=== PATIENT | male | born 1990 | race Caucasian/White ===

== ENCOUNTER 2018-02-08 16:22 | Emergency (ER) | payer SELFPAY ==
[~2018-02-08] VITALS: Ht 165.1 cm; Wt 73.9 kg
[~2018-02-08 16:22] MED LIST: CRS350T PO; CYCL10TA9 PO; DICY20TA57 PO; HYDR-3720 PO; HYDR1TAB PO; HYOS0.1216 PO; IBP800T PO; METO10TA61 PO; NAPR-243 PO; PANT20TA2 PO; RT-ALBUINH IH; TRAM50TA2 PO
--- NOTE | 2018-02-08 16:35 | ED Lower Extremity ---
General Stated Complaint: L FOOT PAIN Source: patient Exam Limitations: no limitations History of Present Illness Date Seen by Provider: Feb 08, 2018 Time Seen by Provider: 16:32 Initial Comments To ER with pain to the dorsal aspect of the left forefoot that began spontaneously about 3 days ago without known preceding injury. He notices a bit of discoloration in this area that appears to be bruising. No history of this. Onset: just prior to arrival Severity: moderate Pain/Injury Location: left foot Method of Injury: unknown Modifying Factors: Worse With Movement Allergies and Home Medications Allergies Coded Allergies: NKANo Known Allergies (Unverified Allergy, Mild, 10/12/08) Home Medications No Active Prescriptions or Reported Meds Patient Home Medication List Home Medication List Reviewed: Yes Review of Systems Constitutional: see HPI EENTM: see HPI Respiratory: no symptoms reported Cardiovascular: no symptoms reported Genitourinary: no symptoms reported Musculoskeletal: see HPI Skin: see HPI Psychiatric/Neurological: No Symptoms Reported Past Otkprsi-Qrtaev-Mgauux Hx Patient Social History Recent Foreign Travel: No Contact w/Someone Who Travel: No Recent Hopitalizations: No Immunizations Up To Date Tetanus Booster (TDap): More than 5yrs Past Medical History Gallbladder Reproductive Disorders: No Gall Bladder Disease Family Medical History No Pertinent Family Hx, Hypertension Physical Exam Vital Signs Vital Signs - First Documented 02/08/18 16:30 Temp 96.2 Pulse 90 Resp 18 B/P (MAP) 109/80 (90) Pulse Ox 98 O2 Delivery Room Air Capillary Refill : Height, Weight, BMI Height: 5'5" Weight: 195lbs. oz. 88.199087qt; BMI Method:Stated General Appearance: WD/WN, no apparent distress HEENT: PERRL/EOMI, normal ENT inspection Neck: non-tender, full range of motion Respiratory: no respiratory distress, no accessory muscle use Hips: bilateral hip non-tender, bilateral hip normal inspection, bilateral hip normal range of motion Legs: bilateral leg non-tender, bilateral leg normal inspection, bilateral leg normal range of motion Knees: bilateral knee non-tender, bilateral knee normal inspection, bilateral knee normal range of motion Ankles: bilateral ankle non-tender, bilateral ankle normal inspection, bilateral ankle normal range of motion Feet: left foot other (left foot is without swelling or deformity. There is some very faint purplish discoloration to the dorsal aspect of the forefoot near the second third and fourth MTP joints. He is able to wiggle his toes, normal sensation distal to this and brisk capillary refill to each of the toes.) Neurologic/Psychiatric: alert, normal mood/affect, oriented x 3 Skin: normal color, warm/dry Progress/Results/Core Measures Results/Orders My Orders Orders - RODRÍGUEZ MERA APRN Foot, Left, 3 Views (02/08/18 16:31) Vital Signs/I&O 02/08/18 16:30 Temp 96.2 Pulse 90 Resp 18 B/P (MAP) 109/80 (90) Pulse Ox 98 O2 Delivery Room Air Departure Impression Primary Impression: Left foot pain Disposition: HOME, SELF-CARE Condition: Stable Departure-Patient Inst. Decision time for Depature: 16:34 Referrals: [facility] [place] [place] (PCP/Family) Primary Care Physician Patient Instructions: General (DC) Add. Discharge Instructions: 1. Use ibuprofen or naproxen for pain control. Reduce your cigarette smoking 2. Follow-up with your regular doctor this week for follow-up. Call tomorrow morning at 8 AM for an appointment. Crutches as needed. Scripts No Active Prescriptions or Reported Meds Work/School Note: Work Release Form Date Seen in the Emergency Department: Feb 08, 2018 Return to Work: Feb 11, 2018 RODRÍGUEZ MERA APRN Feb 08, 2018 16:35
--- NOTE | 2018-02-08 16:47 | Diagnostic Imaging Report ---
Indication: Pain on dorsum of left foot 3 views of the left foot show no fracture, dislocation or other acute abnormalities. Impression: Negative left foot Dictated by: Dictated on workstation # [id number]
[2018-02-08 17:09] VITALS: BP 109/80
--- OUTSIDE RECORDS SUMMARY | 2018-02-08 17:36 | XMS REPORT ---
Author Author PRADEEPHERBERT COUGHLIN [facility] Address Unknown Care Team Providers Care Rubber And Pounder Name Role Phone HERBERT GARRIDO Unavailable PROBLEMS Type Condition ICD9-CM Code [id number] Code Onset Dates Condition Status SNOMED Code Problem Calculus of gallbladder without mention of cholecystitis or obstruction 574.20 Active 101082515 Problem Lumbago 724.2 Active 949718725 Problem Abdominal pain, epigastric 789.06 Active 67259932 Problem Pain in soft tissues of limb 729.5 Active 24062156 Problem Nausea with vomiting 787.01 Active 26732679 ALLERGIES No Known Allergies ENCOUNTERS Encounter Location Date Diagnosis [facility] [address] [id number] Nov, Dental examination Z01.20 and Dental caries K02.9 [facility] [address] [address] Nov, Dental caries extending into dentin K02.62 and Encounter for screening for dental disorder Z13.84 [facility] [address] [id number] September, Dental examination Z01.20 and Dental caries K02.9 [facility] [address] [address] September, Oral abscess K12.2 [facility] [address] [address] September, Dental abscess K04.7 [facility] [address] [address] Jan, Epigastric pain 789.06 ; Dyspnea 786.09 ; Hepatic cyst 573.8 and Hepatic steatosis 571.8 [facility] [address] [place] [address] 28 Sep, 2014 [facility] [place] [facility] [address] [id number] [place] [address] 28 Sep, 2014 [facility] [place] [facility] [address] [id number] [place] [address] 14 Apr, 2014 [facility] [place] [facility] [address] [id number] [place] [address] 13 Apr, 2014 [facility] [place] [facility] [address] [id number] [place] [address] 23 Sep, 2013 [facility] [place] [facility] [address] [id number] [place] [address] 23 Sep, 2013 [facility] [place] [facility] [address] [id number] [place] [address] 17 Sep, 2013 [facility] [place] [facility] [address] [id number] [place] [address] 17 Sep, 2013 [facility] [place] [facility] [address] [id number] [place] [address] 17 Sep, 2013 [facility] [place] [facility] [address] [id number] [place] [address] 17 Sep, 2013 [facility] [place] [facility] [address] [id number] [place] [address] 16 Sep, 2013 [facility] [place] [facility] [address] [id number] [place] [address] 25[address] 16 Sep, 2013 [facility] [place] [facility] [address] [id number] [place] [address] 11 Sep, 2013 [facility] [place] [facility] [address] [id number] [place] [address] 2546 11 Sep, 2013 [facility] [place] [facility] [address] [id number] [place] [address] 05 Sep, 2013 [facility] [place] [facility] [address] [id number] [place] [address] 05 Jan, 2014 [facility] [place] [facility] [address] [id number] [place] [address] 13 Apr, 2013 [facility] [place] [facility] [address] [id number] [place] [address] Apr, [facility] [place] [facility] [address] [id number] [place] [address] Apr, [facility] [place] [facility] [address] [id number] [place] [address] Apr, [facility] [place] [facility] [address] [id number] [place] [address] Apr, [facility] [place] [facility] [address] [id number] [place] [address] Apr, [facility] [place] [facility] [address] [id number] [place] [address] Apr, [facility] [place] [facility] [address] [id number] [place] [address] Apr, [facility] [place] [facility] [address] [id number] [place] [address] Apr, [facility] [place] [facility] [address] [id number] [place] [address] 14 Mar, 2013 [facility] [place] [facility] [address] [id number] [place] [address] 14 Mar, 2013 [facility] [place] [facility] [address] [id number] [place] [address] Mar, [facility] [place] [facility] [address] [id number] [place] [address] 05 Mar, 2013 [facility] [place] [facility] [address] [id number] [place] [address] Jan, [facility] [place] [facility] [address] [id number] [place] [address] 07 Oct, 2012 [facility] [place] [facility] [address] [id number] [place] [address] September, [facility] [address] [facility] [id number] [place] [address] Jul, IMMUNIZATIONS No Known Immunizations SOCIAL HISTORY Never Assessed REASON FOR VISIT YON PLAN OF CARE Activity Details Follow Up prn Reason:MAURICIO with HYG VITAL SIGNS Blood pressure systolic 138 mmHg 2017-10-01 Blood pressure diastolic 78 mmHg 2017-10-01 MEDICATIONS Medication Instructions Dosage Frequency Start Date End Date Duration Status ProAir HFA 108 (90 Base) MCG/ACT Inhalation every 4 hrs prn 2 puffs as needed Jan, Not-Taking Amoxicillin 500 MG Orally every 8 hrs 1 capsule 8h September, September, 10 day(s) Active RESULTS No Results PROCEDURES Procedure Date Ordered Result Body Site LTD ORAL EVALUATION - PROBLEM FOCUS October 01, 2017 EXTRAC ERUPTED TOOTH/EXPOSED ROOT October 01, 2017 INSTRUCTIONS MEDICATIONS ADMINISTERED No Known Medications MEDICAL (GENERAL) HISTORY Type Description Date Medical History cyst on liver Surgical History cholecystectomy Hospitalization History surgery
--- OUTSIDE RECORDS SUMMARY | 2018-02-08 17:36 | XMS REPORT ---
Author Author KRISTIN BOOKER Organization [facility] Address [address] [place] [address] Care Team Providers Care Barrel Handler Name Role Phone KRISTIN BOOKER Unavailable PROBLEMS Type Condition ICD9-CM Code EPX45-DV Code Onset Dates Condition Status SNOMED Code Problem Calculus of gallbladder without mention of cholecystitis or obstruction 574.20 Active 248931302 Problem Lumbago 724.2 Active 200936207 Problem Abdominal pain, epigastric 789.06 Active 71620008 Problem Pain in soft tissues of limb 729.5 Active 29945134 Problem Nausea with vomiting 787.01 Active 12335654 ALLERGIES No Known Allergies ENCOUNTERS Encounter Location Date Diagnosis [facility] [address] [address] Jan, [facility] [address] [address] Dec, Viral gastroenteritis A08.4 [facility] [address] [id number] Nov, 2017 Dental examination Z01.20 and Dental caries K02.9 [facility] [address] [address] 13 Nov, 2017 Dental caries extending into dentin K02.62 and Encounter for screening for dental disorder Z13.84 [facility] [address] [id number] 17 Sep, 2017 Dental examination Z01.20 and Dental caries K02.9 [facility] [address] [address] 15 Sep, 2017 Oral abscess K12.2 [facility] [address] [address] 15 Sep, 2017 Dental abscess K04.7 [facility] [place] [facility] [address] [address] 29 Jan, 2014 Epigastric pain 789.06 ; Dyspnea 786.09 ; Hepatic cyst 573.8 and Hepatic steatosis 571.8 [facility] [place] [facility] [address] [id number], [place] [address] 28 Jan, 2014 [facility] [place] [facility] [id number] [place] [address] 28 Jan, 2014 [facility] [place] [facility] [id number] [place] [address] 14 Aug, 2014 [facility] [place] [facility] [id number] [place] [address] 13 Aug, 2014 [facility] [place] [facility] [id number] [place] [address] 6[address] 23 Jan, 2013 [facility] [place] [facility] [id number] [place] [address] 23 Jan, 2013 [facility] [place] [facility] [id number] [place] [address] 17 Jan, 2013 [facility] [place] [facility] [id number] [place] [address] 17 Jan, 2013 [facility] [place] [facility] [address], [place] [address] 17 Jan, 2013 [facility] [place] [facility] [address] [place] [address] 17 Jan, 2013 [facility] [place] [facility] [address], [place] [address] 16 Jan, 2013 [facility] [place] [facility] [id number] [place] [address] 16 Jan, 2013 [facility] [place] [facility] [address] [address] 11 Jan, 2013 [facility] [place] [facility] [address] [id number] [address] 11 Jan, 2013 [facility] [address] [id number] [place] [address] 24[address] 05 Jan, 2013 [facility] [place] [facility] [address] [id number] [place] [address] 115[address] 05 Jan, 2013 [facility] [address] [id number] [place] [address]- 0[address] 13 Apr, 2013 [facility] [place] [facility] [address] [id number] [place] [address]- 5[address] 13 Apr, 2013 [facility] [address] [id number] [place] [address] 8[address] 10 Apr, 2013 [facility] [place] [facility] [address] [id number] [place] [address]- [address] Apr, [facility] [address] [id number] [place] [address] 3499 10 Apr, 2013 [facility] [place] [facility] [address] [id number] [place] [address] 87[address] Apr, [facility] [place] [facility] [address] [id number] [place] [address] 3[address] Apr, [facility] [address] [id number] [place] [address]- 4392 Apr, [facility] [place] [facility] [address] [id number] [place] [address]- 32[address] Apr, [facility] [place] [facility] [address] [id number] [place] [address] 4658 14 Mar, 2013 [facility] [place] [facility] [address] [id number] [place] [address] 3477 14 Mar, 2013 [facility] [place] [facility] [address] [id number] [place] [address]- 86[address] Mar, [facility] [place] [facility] [address] [id number] [place] [address] 7[address] 05 Mar, 2013 [facility] [address] [facility] [id number], [place] [address] Jan, [facility] [address] [facility] [id number], [place] [address] Oct, [facility] [address] [facility] [id number], [place] [address] September, [facility] [address] [facility] [id number], [place] [address] Jul, IMMUNIZATIONS No Known Immunizations SOCIAL HISTORY Never Assessed REASON FOR VISIT N/v x 2 days. Denies fever. Pt states he has been drinking water and sprite. Last urinated 30 minutes ago. [facility] PLAN OF CARE Activity Details Follow Up prn Reason: VITAL SIGNS Height 66 in 2018-01-04 Weight 166.2 lbs 2018-01-04 Temperature 97.4 degrees Fahrenheit 2018-01-04 Heart Rate 80 bpm 2018-01-04 Respiratory Rate 2018-01-04 BMI 26.82 kg/m2 2018-01-04 Blood pressure systolic 120 mmHg 2018-01-04 Blood pressure diastolic 80 mmHg 2018-01-04 MEDICATIONS Medication Instructions Dosage Frequency Start Date End Date Duration Status Zofran ODT 4 MG Orally every 4 hrs 1 tablet on the tongue and allow to dissolve as needed 4h Dec, 03 days Active RESULTS No Results PROCEDURES No Known procedures INSTRUCTIONS MEDICATIONS ADMINISTERED No Known Medications MEDICAL (GENERAL) HISTORY Type Description Date Medical History cyst on liver Surgical History cholecystectomy Hospitalization History surgery
--- OUTSIDE RECORDS SUMMARY | 2018-02-08 17:36 | XMS REPORT ---
Author Author DEBORA MACKEY [facility] Address [address] [place] [address] Care Team Providers Care Events Intern Name Role Phone DEBORA MACKEY Unavailable PROBLEMS Type Condition ICD9-CM Code HZA65-QQ Code Onset Dates Condition Status SNOMED Code Problem Calculus of gallbladder without mention of cholecystitis or obstruction 574.20 Active 523609680 Problem Lumbago 724.2 Active 741374461 Problem Abdominal pain, epigastric 789.06 Active 10411879 Problem Pain in soft tissues of limb 729.5 Active 10236724 Problem Nausea with vomiting 787.01 Active 95012387 ALLERGIES No Known Allergies ENCOUNTERS Encounter Location Date Diagnosis [facility] [address] [address] Dec, Viral gastroenteritis A08.4 [facility] [address] [id number] Nov, Dental examination Z01.20 and Dental caries K02.9 [facility] [address] [address] Nov, Dental caries extending into dentin K02.62 and Encounter for screening for dental disorder Z13.84 [facility] [address] [id number] September, Dental examination Z01.20 and Dental caries K02.9 [facility] [address] [address] September, Oral abscess K12.2 [facility] [address] [address] September, Dental abscess K04.7 [facility] [address] [place] [address] 29 Jan, 2015 Epigastric pain 789.06 ; Dyspnea 786.09 ; Hepatic cyst 573.8 and Hepatic steatosis 571.8 [facility] [place] [facility] [address], [place] [address] 28 Jan, 2014 [facility] [place] [facility] [id number] [place] [address] 28 Jan, 2014 [facility] [place] [facility] [id number] [place] [address]- [address] 14 Aug, 2014 [facility] [place] [facility] [id number] [place] [address]- [address] 13 Aug, 2014 [facility] [place] [facility] [id number] [place] [address] 23 Jan, 2013 [facility] [place] [facility] [id number] [place] [address]- [address] 23 Jan, 2013 [facility] [place] [facility] [id number] [place] [address]- 3698 17 Jan, 2013 [facility] [place] [facility] [id number] [place] [address] 2543 17 Jan, 2013 [facility] [place] [facility] [address] [id number], [place] [address]- [address] 17 Jan, 2013 [facility] [place] [facility] [address], [place] [address] 2542 17 Jan, 2013 [facility] [place] [facility] [address], [place] [address]- [address] 16 Jan, 2013 [facility] [place] [facility] [address] [place] [address] 254 16 Jan, 2013 [facility] [place] [facility] [address], [place] [address] 11 Jan, 2013 [facility] [place] [facility] [address], [place] [address]- [address] 11 Jan, 2013 [facility] [place] [facility] [address] [facility] [id number] [place] [address]- [address] 05 Jan, 2013 [facility] [address] [id number] [place] [address]- 5784 05 Jan, 2014 [facility] [place] [facility] [address] [id number] [place] [address]- 7[address] Apr, [facility] [address] [id number] [place] [address]- 00[address] Apr, [facility] [place] [facility] [address] [id number] [place] [address]- 03[address] Apr, [facility] [address] [id number] [place] [address]- 8768 Apr, [facility] [address] [id number] [place] [address]- 83[address] Apr, [facility] [address] [id number] [place] [address]- 7[address] Apr, [facility] [address] [id number] [place] [address]- 39[address] Apr, [facility] [address] [id number] [place] [address]- 4651 Apr, [facility] [address] [id number] [place] [address]- 97[address] Apr, [facility] [place] [facility] [address] [id number] [place] [address]- [address] Mar, [facility] [place] [facility] [address] [id number] [place] [address]- 8[address] Mar, [facility] [place] [facility] [address] [id number] [place] [address]- 132[address] Mar, [facility] [place] [facility] [address] [id number] [place] [address]- [address] Mar, [facility] [place] [facility] [address] [id number] [place] [address]- 69[address] Jan, [facility] [address] [facility] [id number] [place] [address]- [address] Oct, [facility] [address] [facility] [id number], [place] [address] September, [facility] [address] [facility] [id number], [place] [address] Jul, IMMUNIZATIONS No Known Immunizations SOCIAL HISTORY Never Assessed REASON FOR VISIT tooth pain. PLAN OF CARE Activity Details Follow Up today Reason:YON/ possible TE VITAL SIGNS Blood pressure systolic 122 mmHg 2017-11-27 Blood pressure diastolic 80 mmHg 2017-11-27 MEDICATIONS Medication Instructions Dosage Frequency Start Date End Date Duration Status ProAir HFA 108 (90 Base) MCG/ACT Inhalation every 4 hrs prn 2 puffs as needed Jan, Not-Taking RESULTS No Results PROCEDURES Procedure Date Ordered Result Body Site INTRAORL-PERIAPICAL 1 FILM 47672 November 27, 2017 PANORAMIC FILM SEE ALSO CODE [id number] September 29, 2017 Billing Notes on claim November 27, 2017 SCREENING OF A PATIENT November 27, 2017 INSTRUCTIONS MEDICATIONS ADMINISTERED No Known Medications MEDICAL (GENERAL) HISTORY Type Description Date Medical History cyst on liver Surgical History cholecystectomy Hospitalization History surgery
--- OUTSIDE RECORDS SUMMARY | 2018-02-08 17:36 | XMS REPORT ---
Author Author MAI CORTEZ Organization [facility] Address [address] [place] [address] Care Team Providers Care Passenger Tire Builder Name Role Phone MAI CORTEZ Unavailable PROBLEMS Type Condition ICD9-CM Code RYS59-JW Code Onset Dates Condition Status SNOMED Code Problem Calculus of gallbladder without mention of cholecystitis or obstruction 574.20 Active 723410751 Problem Lumbago 724.2 Active 190012492 Problem Abdominal pain, epigastric 789.06 Active 55123017 Problem Pain in soft tissues of limb 729.5 Active 92415053 Problem Nausea with vomiting 787.01 Active 01309638 ALLERGIES No Known Allergies ENCOUNTERS Encounter Location Date Diagnosis [facility] [address] [id number] Nov, Dental examination Z01.20 and Dental caries K02.9 [facility] [address] [address] Nov, Dental caries extending into dentin K02.62 and Encounter for screening for dental disorder Z13.84 [facility] [address] [id number] September, Dental examination Z01.20 and Dental caries K02.9 [facility] [address] [address] September, Oral abscess K12.2 [facility] [address] [address] September, Dental abscess K04.7 [facility] [address] [address] Jan, Epigastric pain 789.06 ; Dyspnea 786.09 ; Hepatic cyst 573.8 and Hepatic steatosis 571.8 [place] [id number] [id number] [place] [address] 28 Sep, 2014 [facility] [place] [facility] [address] [id number] [place] [address] 2546 28 Sep, 2014 [facility] [place] [facility] [address] [id number] [place] [address] 14 Aug, 2014 [facility] [place] [facility] [address] [id number] [place] [address] 13 Apr, 2014 [facility] [place] [facility] [address] [id number] [place] [address] 2542 23 Sep, 2013 [facility] [place] [facility] [address] [id number] [place] [address] 23 Sep, 2013 [facility] [place] [facility] [address] [id number] [place] [address] 114[address] 17 Sep, 2013 [facility] [place] [facility] [address] [id number] [place] [address] 17 Sep, 2013 [facility] [place] [facility] [address] [id number] [place] [address] 17 Sep, 2013 [facility] [place] [facility] [address] [id number] [place] [address] 17 Sep, 2013 [facility] [place] [facility] [address] [id number] [place] [address] 2544 16 Sep, 2013 [facility] [place] [facility] [address] [id number] [place] [address] 16 Sep, 2013 [facility] [place] [facility] [address] [id number] [place] [address] 2546 11 Sep, 2013 [facility] [place] [facility] [address] [id number] [place] [address] 2546 11 Sep, 2013 [facility] [place] [facility] [address] [id number] [place] [address] 05 Sep, 2013 [facility] [place] [facility] [address] [id number] [place] [address] 05 Jan, 2014 [facility] [address] [id number] [place] [address] 13 Apr, 2013 [facility] [place] [facility] [address] [id number] [place] [address] Apr, [facility] [place] [facility] [address] [facility] [id number] [place] [address] Apr, [facility] [place] [facility] [address] [id number] [place] [address] Apr, [facility] [place] [facility] [address] [id number] [place] [address] Apr, [facility] [place] [facility] [address] [id number] [place] [address] Apr, [facility] [place] [facility] [address] [id number] [place] [address] 12[address] Apr, [facility] [place] [facility] [address] [id number] [place] [address] Apr, [facility] [place] [facility] [address] [id number] [place] [address] Apr, [facility] [place] [facility] [address] [id number] [place] [address] 14 Mar, 2013 [facility] [place] [facility] [address] [id number], [place] [address] 14 Mar, 2013 [facility] [place] [facility] [address] [id number], [place] [address] 05 Mar, 2013 [facility] [place] [facility] [address] [id number] [place] [address] 05 Mar, 2013 [facility] [place] [facility] [address] [id number] [place] [address] Jan, [facility] [place] [facility] [address] [id number], [place] [address] Oct, [facility] [place] [facility] [address] [facility] [id number] [place] [address] September, [facility] [address] [facility] [id number], [place] [address] Jul, IMMUNIZATIONS No Known Immunizations SOCIAL HISTORY Never Assessed REASON FOR VISIT Dental Assessment PLAN OF CARE Activity Details Follow Up MARJORIE Reason:YON/TX VITAL SIGNS MEDICATIONS Medication Instructions Dosage Frequency Start Date End Date Duration Status ProAir HFA 108 (90 Base) MCG/ACT Inhalation every 4 hrs prn 2 puffs as needed Jan, Not-Taking RESULTS No Results PROCEDURES Procedure Date Ordered Result Body Site INTRAORL-PERIAPICAL 1 FILM 45465 September 29, 2017 PANORAMIC FILM SEE ALSO CODE 20443 September 29, 2017 Billing Notes on claim September 29, 2017 SCREENING OF A PATIENT September 29, 2017 INSTRUCTIONS MEDICATIONS ADMINISTERED No Known Medications MEDICAL (GENERAL) HISTORY Type Description Date Medical History cyst on liver Surgical History cholecystectomy Hospitalization History surgery
--- OUTSIDE RECORDS SUMMARY | 2018-02-08 17:36 | XMS REPORT ---
Author Author PRADEEPHERBERT COUGHLIN [facility] Address Unknown Care Team Providers Care Magento Web Developer Name Role Phone HERBERT GARRIDO Unavailable PROBLEMS Type Condition ICD9-CM Code LBD97-AK Code Onset Dates Condition Status SNOMED Code Problem Calculus of gallbladder without mention of cholecystitis or obstruction 574.20 Active 251276940 Problem Lumbago 724.2 Active 594173599 Problem Abdominal pain, epigastric 789.06 Active 45522854 Problem Pain in soft tissues of limb 729.5 Active 23474833 Problem Nausea with vomiting 787.01 Active 32281575 ALLERGIES No Known Allergies ENCOUNTERS Encounter Location Date Diagnosis [facility] [address] [address] Dec, Viral gastroenteritis A08.4 [facility] [address] [id number] Nov, Dental examination Z01.20 and Dental caries K02.9 [facility] [address] [address] Nov, Dental caries extending into dentin K02.62 and Encounter for screening for dental disorder Z13.84 [facility] [address] [id number] September, Dental examination Z01.20 and Dental caries K02.9 [facility] [address] [address] September, Oral abscess K12.2 [facility] [address] [address] September, Dental abscess K04.7 [facility] [address] [address] 29 Sep, 2015 Epigastric pain 789.06 ; Dyspnea 786.09 ; Hepatic cyst 573.8 and Hepatic steatosis 571.8 [facility] [address] [place] [address] 28 Jan, 2014 [facility] [place] [facility] [address] [place] [address] 28 Jan, 2014 [facility] [place] [facility] [id number] [place] [address], [place] [address] 14 Aug, 2014 [facility] [place] [facility] [address] [facility] [id number] [place] [address], [place] [address] 13 Aug, 2014 [facility] [place] [facility] [address] [place] [id number] [place] [address], [place] [address] 23 Jan, 2013 [facility] [place] [facility] [address] [place] [id number] [place] [address], [place] [address] 23 Jan, 2013 [facility] [place] [facility] [address] [place] [id number] [place] [address], [place] [address] 2547 17 Jan, 2013 [facility] [place] [facility] [id number] [address] 2540 17 Jan, 2013 [facility] [place] [facility] [address] [address] 254 17 Jan, 2013 [facility] [place] [facility] [address] [place] [id number] [address] 17 Jan, 2013 [facility] [place] [facility] [address] [address] 25[address] 16 Jan, 2013 [facility] [place] [facility] [address] [place] [address] [id number] [address] 2543 16 Jan, 2013 [facility] [place] [facility] [address] [address] 2546 11 Jan, 2013 [facility] [place] [facility] [address] [place] [id number] [address] 11 Jan, 2013 [facility] [place] [facility] [address] [address] 05 Jan, 2014 [facility] [address] [id number] [place] [address] 05 Jan, 2014 [facility] [place] [facility] [address] [id number] [place] [address] Apr, [facility] [place] [facility] [address] [id number] [place] [address] Apr, [facility] [place] [facility] [address] [id number] [place] [address] Apr, [facility] [place] [facility] [address] [id number] [place] [address] 9[address] Apr, [facility] [place] [facility] [address] [id number] [place] [address] Apr, [facility] [place] [facility] [address] [id number] [place] [address] 97[address] Apr, [facility] [place] [facility] [address] [id number] [place] [address]- 8[address] Apr, [facility] [place] [facility] [address] [id number] [place] [address] Apr, [facility] [place] [facility] [address] [id number] [place] [address] Apr, [facility] [place] [facility] [address] [id number] [place] [address] Mar, [facility] [place] [facility] [address] [id number] [address] 14 Mar, 2013 [facility] [place] [facility] [address] [id number] [place] [address]- 9268 Mar, [facility] [place] [facility] [address] [id number] [place] [address]- 9[address] Mar, [facility] [place] [facility] [address] [id number] [place] [address] 47[address] Jan, [facility] [place] [facility] [address] [facility] [id number] [place] [address] Oct, [facility] [address] [facility] [id number] [place] [address] September, [facility] [address] [facility] [id number] [place] [address] Jul, IMMUNIZATIONS No Known Immunizations SOCIAL HISTORY Never Assessed REASON FOR VISIT YON PLAN OF CARE Activity Details Follow Up prn Reason:trell VITAL SIGNS Blood pressure systolic 122 mmHg 2017-11-27 Blood pressure diastolic 80 mmHg 2017-11-27 MEDICATIONS Medication Instructions Dosage Frequency Start Date End Date Duration Status ProAir HFA 108 (90 Base) MCG/ACT Inhalation every 4 hrs prn 2 puffs as needed Jan, Not-Taking RESULTS No Results PROCEDURES Procedure Date Ordered Result Body Site LTD ORAL EVALUATION - PROBLEM FOCUS November 27, 2017 PANORAMIC FILM SEE ALSO CODE 01486 September 29, 2017 EXTRAC ERUPTED TOOTH/EXPOSED ROOT November 27, 2017 INSTRUCTIONS MEDICATIONS ADMINISTERED No Known Medications MEDICAL (GENERAL) HISTORY Type Description Date Medical History cyst on liver Surgical History cholecystectomy Hospitalization History surgery
--- OUTSIDE RECORDS SUMMARY | 2018-02-08 17:37 | XMS REPORT ---
Author Author SHANE HAN [facility] Address [address] [place] [address] Care Team Providers Care Internet Marketing Strategist Name Role Phone SHANE HAN Unavailable PROBLEMS Type Condition ICD9-CM Code MZA29-BW Code Onset Dates Condition Status SNOMED Code Problem Calculus of gallbladder without mention of cholecystitis or obstruction 574.20 Active 629120332 Problem Lumbago 724.2 Active 414661329 Problem Abdominal pain, epigastric 789.06 Active 36484238 Problem Pain in soft tissues of limb 729.5 Active 07670299 Problem Nausea with vomiting 787.01 Active 00742432 ALLERGIES No Known Allergies ENCOUNTERS Encounter Location Date Diagnosis [facility] [address] [id number] Nov, Dental examination Z01.20 and Dental caries K02.9 [facility] [address] [address] Nov, Dental caries extending into dentin K02.62 and Encounter for screening for dental disorder Z13.84 [facility] [address] [id number] September, Dental examination Z01.20 and Dental caries K02.9 [facility] [address] [place] [id number] [place] [address] September, Oral abscess K12.2 [facility] [address] [address] September, Dental abscess K04.7 [facility] [address] [address] Jan, Epigastric pain 789.06 ; Dyspnea 786.09 ; Hepatic cyst 573.8 and Hepatic steatosis 571.8 [facility] [address] [id number] [place] [address] 28 Sep, 2014 [facility] [place] [facility] [address] [id number] [place] [address] 28 Sep, 2014 [facility] [place] [facility] [address] [id number] [place] [address]- [address] 14 Aug, 2014 [facility] [place] [facility] [address] [id number] [place] [address] 13 Apr, 2014 [facility] [place] [facility] [address] [id number] [place] [address] 23 Sep, 2013 [facility] [place] [facility] [address] [id number] [place] [address] 23 Sep, 2013 [facility] [place] [facility] [address] [id number] [place] [address]- 9971 17 Sep, 2013 [facility] [place] [facility] [address] [id number] [place] [address] 77[address] 17 Sep, 2013 [facility] [place] [facility] [address] [id number] [place] [address]- 2549 17 Sep, 2013 [facility] [place] [facility] [address] [id number] [place] [address] 96[address] 17 Sep, 2013 [facility] [place] [facility] [address] [id number] [place] [address]- 2547 16 Sep, 2013 [facility] [place] [facility] [address] [id number] [address] 16 Sep, 2013 [facility] [place] [facility] [address] [id number] [place] [address] 2546 11 Sep, 2013 [facility] [place] [facility] [address] [id number] [place] [address]- 2546 11 Sep, 2013 [facility] [place] [facility] [address] [id number], [place] [address] 05 Sep, 2013 [facility] [place] [facility] [address] [id number], [place] [address] 05 Jan, 2014 [facility] [address] [id number] [place] [address] 66[address] Apr, [facility] [place] [facility] [address] [id number] [place] [address] Apr, [facility] [address] [id number] [place] [address] 2554 Apr, [facility] [place] [facility] [address] [id number] [place] [address]- 8282 Apr, [facility] [address] [id number] [place] [address]- 26[address] Apr, [facility] [place] [facility] [address] [id number] [place] [address]- 3[address] Apr, [facility] [address] [id number] [place] [address]- 5969 Apr, [facility] [place] [facility] [address] [id number] [place] [address] 2800 Apr, [facility] [address] [id number] [place] [address] 135[address] Apr, [facility] [place] [facility] [address] [id number] [place] [address]- 114[address] Mar, [facility] [place] [facility] [address] [id number], [place] [address] Mar, [facility] [place] [facility] [address] [id number], [place] [address] Mar, [facility] [place] [facility] [address] [id number], [place] [address] Mar, [facility] [place] [facility] [address] [id number] [place] [address] 34[address] Jan, [facility] [place] [facility] [address] [id number] [place] [address]- 46[address] Oct, [facility] [place] [facility] [address] [facility] [id number] [place] [address] September, [facility] [address] [facility] [id number], [place] [address] Jul, IMMUNIZATIONS No Known Immunizations SOCIAL HISTORY Never Assessed REASON FOR VISIT tooth abscess Pt has had an abscess tooth for several days, does have dental appointment on MARCELINO Bonilla PLAN OF CARE Activity Details Follow Up prn Reason: VITAL SIGNS Height 66 in 2017-09-29 Weight 177.8 lbs 2017-09-29 Temperature 97.8 degrees Fahrenheit 2017-09-29 Heart Rate 88 bpm 2017-09-29 Respiratory Rate 20 2017-09-29 BMI 28.69 kg/m2 2017-09-29 Blood pressure systolic 126 mmHg 2017-09-29 Blood pressure diastolic 80 mmHg 2017-09-29 MEDICATIONS Medication Instructions Dosage Frequency Start Date End Date Duration Status ProAir HFA 108 (90 Base) MCG/ACT Inhalation every 4 hrs prn 2 puffs as needed Jan, Not-Taking Amoxicillin 500 MG Orally every 8 hrs 1 capsule 8h September, September, 10 day(s) Active RESULTS No Results PROCEDURES No Known procedures INSTRUCTIONS MEDICATIONS ADMINISTERED No Known Medications MEDICAL (GENERAL) HISTORY Type Description Date Medical History cyst on liver Surgical History cholecystectomy Hospitalization History surgery
--- OUTSIDE RECORDS SUMMARY | 2018-02-08 17:37 | XMS REPORT ---
Author Author BRENDAN LEMUS Organization [employer] Address Unknown Phone Unavailable Care Team Providers Care Department Operations Manager Name Role Phone BRENDAN LEMUS CP Unavailable Allergies, Adverse Reactions, Alerts Substance Reaction Event Type N.K.D.A. Info Not Available Non Drug Allergy Problems Problem Type Condition Code Onset Dates Condition Status Assessment Hepatic cyst 573.8 Active Assessment Hepatic steatosis 571.8 Active Problem Abdominal pain, epigastric 789.06 Active Problem Calculus of gallbladder without mention of cholecystitis or obstruction 574.20 Active Problem Lumbago 724.2 Active Assessment Epigastric pain 789.06 Active Assessment Dyspnea 786.09 Active Problem Nausea with vomiting 787.01 Active Problem Pain in soft tissues of limb 729.5 Active Medications Medication Code System Code Instructions Start Date End Date Status Dosage ProAir HFA [facility] [address]-75 108 (90 Base) MCG/ACT Inhalation every 4 hrs prn Feb 13, 2015 2 puffs as needed Procedures Procedure Coding System Code Date Office Visit, Est Pt., Level 4 CPT-4 57900 Feb 13, 2015 Vital Signs Date/Time: Feb 13, 2015 Temperature 98.1 F Weight 198 lbs Height 66 in BMI 31.95 Index Blood Pressure Diastolic 84 mmHg Blood Pressure Systolic 126 mmHg Cardiac Monitoring Heart Rate 80 bpm Results No Known Results Summary Purpose [employer] Submission
== END 2018-02-08 17:09 | disposition home or self-care (01) ==
LOC: EDUNIT# 16:22 → ER 16:23
DX: M79.672 Pain in left foot (principal); Z87.448 Personal history of other diseases of urinary system
CPT/HCPCS: 73630

== ENCOUNTER 2018-03-27 15:54 | Emergency (ER) | payer SELFPAY ==
[~2018-03-27] VITALS: Ht 165.1 cm; Wt 74.8 kg
--- NOTE | 2018-03-27 16:33 | ED Upper Extremity ---
General Chief Complaint: Laceration Stated Complaint: R HAND LITTLE FINGER LAC Source: patient ( on) Exam Limitations: no limitations History of Present Illness Date Seen by Provider: Mar 27, 2018 Time Seen by Provider: 16:30 Initial Comments To ER with reports of a laceration to the dorsal aspect of the IP joint left fifth finger that occurred just prior to arrival while using a knife to cut up and onion. Tetanus is not up-to-date. Onset: just prior to arrival Severity: moderate Pain/Injury Location: left 5th finger Modifying Factors: Worse With Movement Allergies and Home Medications Allergies Coded Allergies: NKANo Known Allergies (Unverified Allergy, Mild, 10/12/08) Home Medications No Active Prescriptions or Reported Meds Patient Home Medication List Home Medication List Reviewed: Yes Review of Systems Constitutional: see HPI; No chills EENTM: see HPI Respiratory: no symptoms reported Cardiovascular: no symptoms reported Genitourinary: no symptoms reported Musculoskeletal: no symptoms reported Skin: see HPI Psychiatric/Neurological: No Symptoms Reported Past Psoaesa-Fbutay-Jovyil Hx Patient Social History Alcohol Use: Denies Use Recreational Drug Use: Yes (MARIJUANA AND ALCOHOL) Smoking Status: Current Everyday Smoker Type Used: Cigarettes Recent Foreign Travel: No Contact w/Someone Who Travel: No Recent Hopitalizations: No Physical Abuse: No Sexual Abuse: No Mistreated: No Fear: No Immunizations Up To Date Tetanus Booster (TDap): More than 5yrs Past Medical History Surgeries: Yes Gallbladder Respiratory: No Cardiac: No Neurological: No Reproductive Disorders: No Gastrointestinal: Yes Gall Bladder Disease Musculoskeletal: No Endocrine: No Cancer: No Psychosocial: Yes (marijuana use) Integumentary: No Blood Disorders: No Family Medical History No Pertinent Family Hx, Hypertension Physical Exam Vital Signs Capillary Refill : Height, Weight, BMI Height: 5'5" Weight: 163lbs. oz. 73.021609xt; 33.28 BMI Method:Stated General Appearance: WD/WN, no apparent distress HEENT: PERRL/EOMI Neck: full range of motion Respiratory: no respiratory distress, no accessory muscle use Shoulder: normal inspection, non-tender Elbow/Forearm: normal inspection, non-tender, Left Wrist: Yes normal inspection, Yes no evidence of injury, Yes normal ROM Hand: Left, laceration (there is a very superficial laceration to the dorsal aspect middle phalanx third and fourth finger as well as a deeper laceration over the distal interphalangeal joint dorsally left and he finger. He is still able to flex and extend his finger. This does not go any deeper than the subcutaneous tissue based on my exam. I am unable to separate the wound edges by much at all. This was scrubbed with chlorhexidine/saline solution and covered with glue.) Neurologic/Psychiatric: alert, normal mood/affect, oriented x 3 Skin: normal color, warm/dry Procedures/Interventions Wound Location: Upper Extremities Wound Length (cm): 1 Wound's Depth, Shape: sub Q Other Closure Supply: Wound Adhesive Departure Impression Primary Impression: Finger laceration Qualified Codes: S61.217A - Laceration without foreign body of left little finger without damage to nail, initial encounter Disposition: 01 HOME, SELF-CARE Condition: Stable Departure-Patient Inst. Decision time for Depature: 16:32 Referrals: [facility] (PCP/Family) Primary Care Physician Patient Instructions: Laceration Repair With Glue (DC) Add. Discharge Instructions: 1. Allow the glue to follow off on his own in 3-5 days. You may wash the hand with soap and water starting's evening. All discharge instructions reviewed with patient and/or family. Voiced understanding. Scripts No Active Prescriptions or Reported Meds RODRÍGUEZ MERA APRN Mar 27, 2018 16:33
[2018-03-27] MEDS ORDERED: TETANUS,DIPTH,PERTUSS P/F (BOOSTRIX) 0.5 ML VIAL IM ONE (16:41)
[2018-03-27 16:47] VITALS: BP 123/74
== END 2018-03-27 16:47 | disposition home or self-care (01) ==
LOC: EDUNIT# 15:54 → ER 15:55
DX: S61.217A Laceration without foreign body of left little finger without damage to nail, initial encounter (principal); F17.210 Nicotine dependence, cigarettes, uncomplicated; F12.10 Cannabis abuse, uncomplicated; F10.10 Alcohol abuse, uncomplicated; Z87.448 Personal history of other diseases of urinary system; W26.0XXA Contact with knife, initial encounter
CPT/HCPCS: 90715

== ENCOUNTER 2020-04-16 18:28 | Emergency (ER) | payer SELFPAY ==
[~2020-04-16] VITALS: Ht 167 cm; Wt 85.0 kg
[2020-04-16 19:17] VITALS: BP 107/68
--- NOTE | 2020-04-16 19:27 | ED Upper Extremity ---
General Chief Complaint: Upper Extremity Stated Complaint: R HAND PAIN, HIT A WALL Nursing Triage Note: Pt here with right hand pain after hitting a wall; states it was made of plaster. Nursing Sepsis Screen: No Definite Risk Source: patient Exam Limitations: no limitations History of Present Illness Date Seen by Provider: Apr 16, 2020 Time Seen by Provider: 19:05 Initial Comments This 30-year-old young man presents to the emergency room with pain in the right hand and wrist after punching a wall out of anger. This occurred mid afternoon today. There is no gross deformity or swelling. He took hydrocodone given to him by a friend. He denies any other injury. Allergies and Home Medications Allergies Coded Allergies: NKANo Known Allergies (Unverified Allergy, Mild, 10/12/08) Home Medications No Active Prescriptions or Reported Meds Patient Home Medication List Home Medication List Reviewed: Yes Review of Systems Constitutional: no symptoms reported EENTM: no symptoms reported Respiratory: no symptoms reported Cardiovascular: no symptoms reported Gastrointestinal: no symptoms reported Genitourinary: no symptoms reported Musculoskeletal: see HPI Skin: other (Contusions of the knuckles on the fingers) Psychiatric/Neurological: No Symptoms Reported Past Idihwlo-Wbabkd-Syldkb Hx Past Med/Social Hx: Reviewed Nursing Past Med/Soc Hx Patient Social History Type Used: Cigarettes Recent Foreign Travel: No Contact w/Someone Who Travel: No Recent Infectious Disease Expo: No Recent Hopitalizations: No Immunizations Up To Date Tetanus Booster (TDap): More than 5yrs Past Medical History Surgeries: Yes Gallbladder Respiratory: No Cardiac: No Neurological: No Reproductive Disorders: No Gastrointestinal: Yes Gall Bladder Disease Musculoskeletal: No Endocrine: No Cancer: No Psychosocial: Yes (marijuana use) Integumentary: No Blood Disorders: No Family Medical History No Pertinent Family Hx, Hypertension Physical Exam Vital Signs Vital Signs - First Documented 04/16/20 19:17 Temp 37.1 Pulse 103 Resp 16 B/P (MAP) 107/68 (81) Pulse Ox 99 O2 Delivery Room Air Capillary Refill : Less Than 3 Seconds Height, Weight, BMI Height: 5'5.00" Weight: 165lbs. oz. 74.406617bw; 30.00 BMI Method:Stated General Appearance: WD/WN, no apparent distress HEENT: normal ENT inspection Cardiovascular: other (Normal radial pulse in the right wrist. Normal capillary refill) Respiratory: no respiratory distress Elbow/Forearm: normal inspection, non-tender, no evidence of injury Wrist: Yes bone tenderness; No deformity; Yes limited ROM; No swelling Hand: Right (No deformity or swelling), bone tenderness, ecchymosis (Over the knuckles), limited ROM Neurologic/Tendon: normal sensation, normal motor functions, normal tendon functions Neurologic/Psychiatric: cafeteria counter attendant II-XII nml as tested, no motor/sensory deficits, alert, normal mood/affect, oriented x 3 Skin: normal color, warm/dry, ecchymosis Progress/Results/Core Measures Results/Orders My Orders Orders - GARY NUNO MD Wrist, Right, 3 Views Or More (04/16/20 19:20) Hand, Right, 3 Views (04/16/20 19:20) Vital Signs/I&O 04/16/20 19:17 Temp 37.1 Pulse 103 Resp 16 B/P (MAP) 107/68 (81) Pulse Ox 99 O2 Delivery Room Air Blood Pressure Mean: 81 Diagnostic Imaging Diagonstic Imaging: Xray Plain Films/CT/US/NM/MRI: other (Right wrist) Comments Right wrist x-ray viewed by me and report reviewed. See report below: NAME: ЕКАТЕРИНА GUERRERO [facility] REC#: [id number] PT STATUS: REG ER : 1990 PHYSICIAN: GARY NUNO MD ADMIT DATE: 04/16/20/ER Signed Date of Exam:04/16/20 WRIST, RIGHT, 3 VIEWS OR MORE EXAM: Right wrist radiograph EXAM DATE: 04/16/2020 COMPARISON: Right hand radiograph 04/16/2020 HISTORY: Right wrist pain after punching a wall. TECHNIQUE: 3 views of the right wrist. FINDINGS: No acute fracture, dislocation, or destructive osseous process. Joint spaces are normal. Soft tissues are normal. IMPRESSION: No acute osseous abnormality of the right wrist. Dictated by: Dictated on workstation # [id number] Dict: 04/16/202002 Trans: 04/16/202032 GARTH [id number] Interpreted by: CONSUELO BOYKIN DO Electronically signed by: CONSUELO BOYKIN DO 04/16/202032 Diagonstic Imaging: Xray Plain Films/CT/US/NM/MRI: hand Comments Right hand x-ray viewed by me and report reviewed. See report below: NAME: ЕКАТЕРИНА GUERRERO [facility] REC#: [id number] PT STATUS: REG ER : 1990 PHYSICIAN: GARY NUNO MD ADMIT DATE: 04/16/20/ER Draft Date of Exam:04/16/20 HAND, RIGHT, 3 VIEWS EXAM: Right hand radiograph EXAM DATE: 04/16/2020 COMPARISON: Right wrist radiograph 04/16/2020 HISTORY: Right hand pain after punching a wall. TECHNIQUE: 3 views of the right hand. FINDINGS: No acute fracture, dislocation, or destructive osseous process. Joint spaces are normal. The soft tissues are normal. IMPRESSION: No acute osseous abnormality of the right hand. Dictated on workstation # [id number] Dict: 04/16/202001 Trans: 04/16/[address] [place] [address] [id number] Interpreted by: CONSUELO BOYKIN DO Departure Impression Primary Impression: Contusion of right hand including fingers Qualified Codes: S60.221A - Contusion of right hand, initial encounter; S60.00XA - Contusion of unspecified finger without damage to nail, initial e ncounter Additional Impression: Right wrist pain Disposition: 01 HOME, SELF-CARE Condition: Stable Departure-Patient Inst. Decision time for Depature: 20:37 Referrals: [facility] (PCP/Family) Primary Care Physician Patient Instructions: Contusion (DC) Add. Discharge Instructions: Ice in 20-minute intervals and elevate. You may take ibuprofen up to 600 mg every 6 hours and Tylenol (acetaminophen) up to 1000 mg every 6 hours. If desired, you may wear a splint purchased [id number]-jir-qwjcwyx to help with the pain and to support the joint. If you are not improving over the next couple days or if symptoms worsen, return to care or follow-up with your primary care provider. Call or return to care with any other concerns. All discharge instructions reviewed with patient and/or family. Voiced understanding. Scripts No Active Prescriptions or Reported Meds GARY NUNO MD Apr 16, 2020 19:27
--- NOTE | 2020-04-16 20:15 | Diagnostic Imaging Report ---
EXAM: Right hand radiograph EXAM DATE: 04/16/2020 COMPARISON: Right wrist radiograph 04/16/2020 HISTORY: Right hand pain after punching a wall. TECHNIQUE: 3 views of the right hand. FINDINGS: No acute fracture, dislocation, or destructive osseous process. Joint spaces are normal. The soft tissues are normal. IMPRESSION: No acute osseous abnormality of the right hand. Dictated by: Dictated on workstation # [id number]
--- NOTE | 2020-04-16 20:17 | Diagnostic Imaging Report ---
EXAM: Right wrist radiograph EXAM DATE: 04/16/2020 COMPARISON: Right hand radiograph 04/16/2020 HISTORY: Right wrist pain after punching a wall. TECHNIQUE: 3 views of the right wrist. FINDINGS: No acute fracture, dislocation, or destructive osseous process. Joint spaces are normal. Soft tissues are normal. IMPRESSION: No acute osseous abnormality of the right wrist. Dictated by: Dictated on workstation # [id number]
== END 2020-04-16 20:51 | disposition home or self-care (01) ==
LOC: EDUNIT# 18:28 → ER 18:31
DX: S60.221A Contusion of right hand, initial encounter (principal); M25.531 Pain in right wrist; W22.8XXA Striking against or struck by other objects, initial encounter
CPT/HCPCS: 73110; 73130

== ENCOUNTER 2020-04-25 06:45 | Emergency (ER) | payer SELFPAY ==
[~2020-04-25] VITALS: Ht 165 cm; Wt 75.0 kg
--- NOTE | 2020-04-25 07:06 | ED Respiratory ---
General Chief Complaint: Respiratory Problems Stated Complaint: SOB Nursing Triage Note: ems sob woke up from sleeping with sob, 95% ra, occ cough Source: patient Exam Limitations: no limitations History of Present Illness Date Seen by Provider: Apr 25, 2020 Time Seen by Provider: 07:00 Initial Comments John is a 30-year-old male who presents to the emergency room today with a chief complaint of shortness of breath and cough. John states that he walked home from work last night and had quite a long walk in the cold. He states when he woke up this morning he had shortness of breath, increased cough. Denies any earache sore throat runny nose. Denies any body aches. Does not have any known Covid exposures that he is aware of. Patient denies chest pain. Denies abdominal pain. Has had a little bit of diarrhea. No sick contacts. States that he has "a smoker's cough" and smokes about a pack a day when he can. When EMS picked him up he had 95% room air saturations. He states his mom called the ambulance for his shortness of breath this morning. All other review of systems reviewed and negative except as stated. Timing/Duration: this morning Severity: mild Prior Episodes/Possible Cause: no prior episodes Associated Symptoms: No chest pain/soreness; cough; No earache, No fever/chills, No nasal congestion, No nasal drainage; shortness of breath; No sore throat Allergies and Home Medications Allergies Coded Allergies: NKANo Known Allergies (Unverified Allergy, Mild, 10/12/08) Home Medications No Active Prescriptions or Reported Meds Patient Home Medication List Home Medication List Reviewed: Yes Review of Systems Review of Systems Constitutional: no symptoms reported, see HPI EENTM: No ear pain, No throat pain Respiratory: cough, short of breath Cardiovascular: no symptoms reported Gastrointestinal: diarrhea Genitourinary: no symptoms reported Musculoskeletal: no symptoms reported Skin: no symptoms reported All Other Systems Reviewed Negative Unless Noted: Yes Past Rhsqnmt-Jloocl-Ylrddd Hx Patient Social History Type Used: Cigarettes Recent Foreign Travel: No Contact w/Someone Who Travel: No Recent Infectious Disease Expo: No Recent Hopitalizations: No Immunizations Up To Date Tetanus Booster (TDap): More than 5yrs Past Medical History Surgeries: Yes Gallbladder Respiratory: No Cardiac: No Neurological: No Reproductive Disorders: No Gastrointestinal: Yes Gall Bladder Disease Musculoskeletal: No Endocrine: No Cancer: No Psychosocial: Yes (marijuana use) Integumentary: No Blood Disorders: No Family Medical History No Pertinent Family Hx, Hypertension Physical Exam Vital Signs - First Documented 04/25/20 06:48 Temp 35.6 Pulse 73 Resp 21 B/P (MAP) 116/87 (97) Pulse Ox 99 O2 Delivery Room Air Capillary Refill : Less Than 3 Seconds Height: 5'5.00" Weight: 165lbs. oz. 74.773788sq; 27.00 BMI Method:Stated General Appearance: WD/WN, no apparent distress Eyes: Bilateral Eye Normal Inspection, Bilateral Eye PERRL, Bilateral Eye EOMI HEENT: PERRL/EOMI Respiratory: no respiratory distress, no accessory muscle use, crackles Cardiovascular: regular rate, rhythm, no murmur Gastrointestinal: normal bowel sounds, non tender, soft, no organomegaly, no pulsatile mass Extremities: normal range of motion, normal inspection, no pedal edema, no calf tenderness Neurologic/Psychiatric: alert, normal mood/affect, oriented x 3 Skin: normal color, warm/dry Progress/Results/Core Measures Suspected Sepsis Recent Fever Within 48 Hours: No Infection Criteria Present: None New/Unexplained Altered Menta: No Sepsis Screen: No Definite Risk SIRS Temperature: Pulse: 73 Respiratory Rate: 21 Blood Pressure 116 /87 Mean: 97 Results/Orders Lab Results Laboratory Tests Test 04/25/20 06:55 Range/Units Coronavirus 2019 (MICHAEL) Negative Negative Micro Results Microbiology 04/25/20 Influenza Types A,B Antigen (RAVEN) - Final, Complete My Orders Orders - SIERRA LEMA MD Covid 19 Inhouse Test (04/25/20 07:07) Influenza A And B Antigens (04/25/20 07:07) Chest 1 View, Ap/Pa Only (04/25/20 07:07) Vital Signs/I&O 04/25/20 06:48 Temp 35.6 Pulse 73 Resp 21 B/P (MAP) 116/87 (97) Pulse Ox 99 O2 Delivery Room Air Capillary Refill : Less Than 3 Seconds 2 Blood Pressure Mean: 97 Progress Note : Time: 08:07 Progress Note Patient resting comfortably. X-ray returned showing a right basilar pneumonia. We will treat him as an outpatient for pneumonia. Covid test is still pending 844 INfluenza and Covid tests negative. Will treat for community acquired pneumo rock. Home with an antibiotic and OTC cough medications. Patient's VS remain stable. No complaints. Diagnostic Imaging Diagonstic Imaging: Xray Plain Films/CT/US/NM/MRI: chest Comments [facility] [place], [place] NAME: JOHN GUERRERO [facility] REC#: [id number] PT STATUS: REG ER : 1990 PHYSICIAN: SIERRA LEMA MD ADMIT DATE: 04/25/20/ER Draft Date of Exam:04/25/20 CHEST 1 VIEW, AP/PA ONLY CHEST 1 VIEW, AP/PA ONLY INDICATION: Cough and shortness of breath. COMPARISON: 01/25/2016 FINDINGS: Right basilar heterogeneous consolidations have developed. No pleural effusion or pneumothorax. Normal cardiomediastinal silhouette. IMPRESSION: 1. Right basilar pneumonia. Dictated on workstation # [id number] Dict: 04/25/20 0756 Trans: 04/25/20 0758 [id number] Interpreted by: RACHID OLSON MD Electronically signed by: Departure Impression Primary Impression: Pneumonia Qualified Codes: J18.9 - Pneumonia, unspecified organism Disposition: 01 HOME, SELF-CARE Condition: Stable Departure-Patient Inst. Decision time for Depature: 08:46 Referrals: [facility] (PCP/Family) Primary Care Physician Patient Instructions: Pneumonia, Adult (DC) Add. Discharge Instructions: Please drink plenty of fluids to stay well-hydrated. I have sent your prescription for antibiotic to your [facility] pharmacy. Please take this every day for the next week starting today. You can use airs-ubu-clcrpfw Robitussin-DM as needed for cough. You can also have hot tea with honey this will help your cough. Please follow-up with your primary care physician. Return to the emergency room for any worsening symptoms, shortness of breath, high fevers or other emergent concerning symptoms. Scripts Levofloxacin (Levofloxacin) 500 Mg Tablet 500 MG PO DAILY, #7 TAB 0 Refills Prov: SIERRA LEMA MD 04/25/20 SIERRA LEMA MD Apr 25, 2020 07:06
--- NOTE | 2020-04-25 07:59 | Diagnostic Imaging Report ---
CHEST 1 VIEW, AP/PA ONLY INDICATION: Cough and shortness of breath. COMPARISON: 01/25/2016 FINDINGS: Right basilar heterogeneous consolidations have developed. No pleural effusion or pneumothorax. Normal cardiomediastinal silhouette. IMPRESSION: 1. Right basilar pneumonia. Dictated by: Dictated on workstation # [id number]
[2020-04-25] MEDS ORDERED: LEVO500T80 PO (08:47)
[2020-04-25 09:13] VITALS: BP 105/76
== END 2020-04-25 09:13 | disposition home or self-care (01) ==
LOC: EDUNIT# 06:45 → ER 06:47
DX: J18.9 Pneumonia, unspecified organism (principal); Z20.828 Contact with and (suspected) exposure to other viral communicable diseases; Z82.49 Family history of ischemic heart disease and other diseases of the circulatory system
CPT/HCPCS: 71045; 87804; U0002; 87635

== ENCOUNTER 2020-10-05 04:17 | Emergency (ER) | payer SELFPAY ==
[~2020-10-05] VITALS: Ht 167.7 cm; Wt 68.2 kg
[~2020-10-05 04:17] MED LIST changes: +LEVO500T80 PO
[2020-10-05 04:40] VITALS: BP 134/50
--- NOTE | 2020-10-05 05:00 | ED Integumentary General ---
General Chief Complaint: R hand swelling, R arm pain Stated Complaint: RT HAND & FOREARM SWOLLEN Source: patient Exam Limitations: no limitations (HA CRAVEN) History of Present Illness Date Seen by Provider: October 05, 2020 Time Seen by Provider: 04:40 Initial Comments Pt presents to ED via private conveyance with complaint of R arm pain and R hand swelling. He states that his forearm became progressively red and painful beginning on 09/29 when he tried to inject methamphetamine into his arm. He states that he first noticed his hand swelling today, which prompted him to visit the ED. He complains of 3/10 pain from his R shoulder that radiates down his arm and into the back of his hand. He states he as associated lightheadedness and nausea w/o vomiting. He reports being homeless, recently losing his job, and unable to pay for medications. He denies other symptoms of chest pain, SOB, abd pain. Timing/Duration: other (09/29) Severity: moderate Location: extremities (R forearm/hand) Possible Cause: other (IV drug use) Modifying Factors: improves with other (denies using medication) Associated Symptoms: change in skin texture (induration to R forearm), edema (R hand) (HA CRAVEN STUDENT) Allergies and Home Medications Allergies Coded Allergies: NKANo Known Allergies (Unverified Allergy, Mild, 10/12/08) Home Medications Levofloxacin 500 Mg Tablet, 500 MG PO DAILY Prescribed by: SIERRA LEMA on 04/25/20 0855 Patient Home Medication List Home Medication List Reviewed: Yes (HA CRAVEN) Review of Systems Review of Systems Constitutional: No chills, No fever EENTM: No hearing loss, No vision loss Respiratory: No cough, No short of breath Cardiovascular: No chest pain; edema (R hand); No palpitations Gastrointestinal: No abdominal pain, No constipation, No diarrhea, No nausea, No vomiting Genitourinary: No dysuria, No hematuria Musculoskeletal: No back pain, No joint pain, No joint swelling Skin: change in color (erythema to mid-distal R forearm); No change in hair/nails Psychiatric/Neurological: Denies Headache, Denies Paresthesia, Denies Tingling, Denies Weakness (HA CRAVEN STUDENT) All Other Systems Reviewed Negative Unless Noted: Yes (MERISSA,HA MED STUDENT) Past Edqwmhg-Qeusqa-Gfhrew Hx Past Med/Social Hx: Reviewed Nursing Past Med/Soc Hx (HA CRAVEN STUDENT) Patient Social History Alcohol Use: Occasionally Uses Smoking Status: Current Everyday Smoker Type Used: Cigarettes 2nd Hand Smoke Exposure: Yes Recent Hopitalizations: No Substance type: Amphetamines, Marijuana Alcohol Use?: Yes (MERISSAHA SUMNER STUDENT) Immunizations Up To Date Tetanus Booster (TDap): More than 5yrs (MERISSAHA SUMNER STUDENT) Past Medical History Surgeries: Yes Gallbladder Respiratory: No Cardiac: No Neurological: No Reproductive Disorders: No Gastrointestinal: Yes Gall Bladder Disease Musculoskeletal: No Endocrine: No Cancer: No Psychosocial: Yes (marijuana use) Integumentary: No Blood Disorders: No (HA CRAVEN STUDENT) Family Medical History No Pertinent Family Hx, Hypertension (HA CRAVEN STUDENT) Physical Exam Vital Signs Capillary Refill : (MERISSAHA SUMNER STUDENT) General Appearance: WD/WN, no apparent distress HEENT: PERRL/EOMI, normal ENT inspection Neck: non-tender, full range of motion, supple, normal inspection Cardiovascular: normal peripheral pulses, no murmur, tachycardia (100's) Respiratory: chest non-tender, lungs clear, normal breath sounds, no respiratory distress, no accessory muscle use Gastrointestinal: normal bowel sounds, non tender, soft Back: normal inspection, no CVA tenderness, no vertebral tenderness Extremities: normal range of motion, normal capillary refill, inflammation (R forearm), swelling (R hand), other (erythematous/indurated area to the mid- distal R forearm, tender to palpation) Neurologic/Psychiatric: no motor/sensory deficits, alert, oriented x 3, depressed affect Skin: warm/dry, cool (R hand cool to touch), other (erythema/induration to R forearm) Skin Problem Location: upper extremities (RUE) Skin Problem Character: erythema, swelling, tenderness, thickening, warm Lymphatic: no adenopathy (HA CRAVEN STUDENT) Progress/Results/Core Measures Results/Orders My Orders Orders - DEVAUGHN IVEY Ceftriaxone For Im Use (Rocephin For Im (10/05/20 05:16) Lidocaine 1% Inj 20 Ml (Xylocaine 1% Inj (10/05/20 05:30) (DEVAUGHN IVEY) Progress Progress Note : Time: 05:18 Progress Note I attest that 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 Patient appears to have some phlebitis in his right forearm which is mild. Because of the risk for MRSA since it was related to an injection site for him methamphetamines I will give him a shot of Rocephin and put him on Bactrim twice daily. Patient reveals he is going to rehab next Thursday. (DEVAUGHN IVEY) Departure Impression Primary Impression: Phlebitis Additional Impression: Methamphetamine dependence Disposition: HOME, SELF-CARE Condition: Stable Departure-Patient Inst. Decision time for Depature: 05:19 (DEVAUGHN IVEY) Referrals: [facility] [place] Primary Care Physician Patient Instructions: Phlebitis (DC) Add. Discharge Instructions: You have an infected vein. You may see some redness in the site and after about 3 to 4 days of antibiotics the redness should start to proceed and get smaller. Return to the ER if the redness going up beyond the level of your shoulder, you develop a fever above 102.5 or other worrisome symptoms. supervisor press room the Bactrim and take 1 tablet twice a day with food for the next week. Scripts Sulfamethoxazole/Trimethoprim (Bactrim Ds Tablet) 1 Each Tablet 1 EACH PO BID for 7 Days, #14 TAB 0 Refills Prov: DEVAUGHN VIEY 10/05/20 HA CRAVEN MED STUDENT October 05, 2020 05:00 DEVAUGHN IVEY October 05, 2020 05:22
[2020-10-05] MEDS ORDERED: cefTRIAXone 1,000 MG/2.86 ml vial (IM ONLY) IM STA (05:16)
[2020-10-05] MEDS ORDERED: SULF1TAB35 PO (05:21)
[2020-10-05] MEDS ORDERED: LIDOCAINE 1% INJ 20 ML 20 ML VIAL INJ ONE (05:30)
== END 2020-10-05 05:40 | disposition home or self-care (01) ==
LOC: EDUNIT# 04:17 → ER 04:21
DX: I80.8 Phlebitis and thrombophlebitis of other sites (principal); F15.20 Other stimulant dependence, uncomplicated; R00.0 Tachycardia, unspecified; F17.210 Nicotine dependence, cigarettes, uncomplicated; Z59.0 Homelessness
CPT/HCPCS: 99284

== ENCOUNTER 2020-11-14 15:12 | Emergency (ER) | payer SELFPAY ==
[~2020-11-14] VITALS: Ht 165 cm; Wt 59.0 kg
[~2020-11-14 15:12] MED LIST changes: +SULF1TAB35 PO
--- NOTE | 2020-11-14 15:38 | ED Back Pain ---
General Chief Complaint: Back Problems Stated Complaint: BACK PAIN, HIP PAIN Nursing Triage Note: AMB TO ROOM C/O L HIP PAIN WITH RADIATION INTO LEG. NO INJURY Source of Information: Patient Exam Limitations: No Limitations (SPENCER MACDONALD APRN) History of Present Illness Date Seen by Provider: Nov 14, 2020 Time Seen by Provider: 15:18 Initial Comments This is a well appearing 30 yo male who presented to the ER with complaints of low back pain that radiates into his left hip and down his left thigh. States he has a constant pressure sensation with intermittent episodes of sharp shooting pain. Has not taken any medications for the pain, only attempted repositioning with some relief. States when he turns towards his left side his symptoms worsen. Currently rating pain 5/10. Denies trauma or injury to area. Was recently released from alcohol/drug treatment center for detox of alcohol and methamphetamines. Last alcohol/meth use was over a month ago. Denies fever, chills, numbness, tingling, weakness, or loss of sensation. No loss of bowel/bladder control. Location: Lumbar Spine Timing/Duration: 2-3 Days Severity: Moderate Pain/Injury Location: Back Radiation: Buttocks, Lower Legs Associated Symptoms: No muscle spasms, No fever, No weakness, No numbness in legs/feet, No tingling in legs/feet; lower back pain; No loss of bladder control, No loss of bowel control (SPENCER MACDONALD [employer] MEMBER) Allergies and Home Medications Allergies Coded Allergies: NKANo Known Allergies (Unverified Allergy, Mild, 10/12/08) Home Medications Levofloxacin 500 Mg Tablet, 500 MG PO DAILY Prescribed by: SIERRA LEMA on 04/25/20 0847 Sulfamethoxazole/Trimethoprim 1 Each Tablet, 1 EACH PO BID Prescribed by: DEVAUGHN IVEY on 10/05/20 0521 Patient Home Medication List Home Medication List Reviewed: Yes (SPENCER MACDONALD APRN) Review of Systems Constitutional: no symptoms reported EENTM: no symptoms reported Respiratory: no symptoms reported Cardiovascular: no symptoms reported Gastrointestinal: no symptoms reported Genitourinary: no symptoms reported Musculoskeletal: see HPI Skin: no symptoms reported Psychiatric/Neurological: No Symptoms Reported (SPENCER MACDONALD APRN) Past Kgydkpk-Xkrbdm-Hclqjs Hx Patient Social History Tobacco Use?: Yes Tobacco type used: Cigarettes Smoking Status: Current Everyday Smoker Alcohol Use?: Yes Alcohol type: Beer Pt feels they are or have been: No (SPENCER MACDONALD APRN) Immunizations Up To Date Tetanus Booster (TDap): More than 5yrs (SPENCER MACDONALD APRN) Past Medical History Surgeries: Yes Gallbladder Respiratory: No Cardiac: No Neurological: No Reproductive Disorders: No Gastrointestinal: Yes Gall Bladder Disease Musculoskeletal: No Endocrine: No Cancer: No Psychosocial: Yes (marijuana use) Integumentary: No Blood Disorders: No (SPENCER MACDONALD APRN) Family Medical History No Pertinent Family Hx, Hypertension (SPENCER MACDONALD APRN) Physical Exam Vital Signs Vital Signs - First Documented 11/14/20 15:17 Temp 35.2 Pulse 75 Resp 18 B/P (MAP) 149/97 (114) Pulse Ox 97 O2 Delivery Room Air (GARY NUNO MD) Vital Signs Capillary Refill : Less Than 3 Seconds (SPENCER MACDONALD APRN) Height, Weight, BMI Height: 5'5.00" Weight: 165lbs. oz. 74.916881bj; 21.00 BMI Method:Stated General Appearance: No Apparent Distress, WD/WN HEENT: PERRL/EOMI, TMs Normal, Normal ENT Inspection, Pharynx Normal, Moist Mucous Membranes Neck: Full Range of Motion, Normal Inspection, Supple Cardiovascular: Regular Rate, Rhythm, No Murmur, Normal Peripheral Pulses Respiratory: Lungs Clear, Normal Breath Sounds, No Accessory Muscle Use, No Respiratory Distress Peripheral Pulses: 2+ Radial Pulses (R), 2+ Radial Pulses (L) Gastrointestinal: Normal Bowel Sounds, Non Tender, Soft Back: Normal Inspection, No CVA Tenderness, Vertebral Tenderness (lumbar ), Other (SLR (+) left ) Extremity: Normal Capillary Refill, Normal Inspection, Normal Range of Motion, No Pedal Edema, Pelvis Stable; No Swelling Neurologic/Psychiatric: Alert, Oriented x3, No Motor/Sensory Deficits, Normal Mood/Affect; No Abnormal Gait, No Motor Weakness, No Sensory Deficit Skin: Normal Color, Warm/Dry (SPENCER MACDONALD APRN) Progress/Results/Core Measures Results/Orders Medications Given in ED Current Medications Medications Dose Ordered Sig/Janak Route Start Time Stop Time Status Last Admin Dose Admin Ketorolac Tromethamine 30 mg ONCE ONCE IM 11/14/20 15:45 11/14/20 15:46 DC 11/14/20 15:47 30 MG Orphenadrine Citrate 60 mg ONCE ONCE IM 11/14/20 15:45 11/14/20 15:46 DC 11/14/20 15:46 60 MG (GRAY NUNO MD) Vital Signs/I&O 11/14/20 11/14/20 15:17 16:27 Temp 35.2 Pulse 75 67 Resp 18 18 B/P (MAP) 149/97 (114) 111/73 Pulse Ox 97 98 O2 Delivery Room Air (GARY NUNO MD) Blood Pressure Mean: 114 Progress Progress Note : Progress Note Patient examined and in no acute distress. Has referred pain to iliac crest, buttock and down posterior/lateral thigh. No systemic symptoms, no trauma. Will obtain x-ray lumbar spine and given Toradol 30mg IM and Norflex 60mg IM for pain . Will re-evaluate. Reported feeling much improved after medication. Resting comfortably in ED bed. X-ray lumbar spine neg for acute findings. Reviewed discharge POC and he is agreeable with plan. (SPENCER MACDONALD APRN) Diagnostic Imaging Diagonstic Imaging: Xray Plain Films/CT/US/NM/MRI: other Comments [facility], [place] NAME: [facility] REC#: [id number] PT STATUS: REG ER : 1990 PHYSICIAN: SPENCER MACDONALD APRN ADMIT DATE: 11/14/20/ER Draft Date of Exam:11/14/20 LUMBAR SPINE - 2-3 VIEWS INDICATION: Low back pain, radiculopathy. COMPARISON: 08/04/2009 FINDINGS: Three views of the lumbar column demonstrate new degenerative disc disease with endplate osteophytosis at the L4-L5 level. Alignment is normal. There is no subluxation, fracture or osseous lesion. SI joints are symmetric. IMPRESSION: New degenerative changes at L4-L5. Dictated on workstation # [id number] Dict: 11/14/20 1611 Trans: 11/14/20 1614 [facility] [id number] Interpreted by: HEMANT CABRAL Electronically signed by: Reviewed: Reviewed by Me (SPENCER MACDONALD APRN) Departure Impression Primary Impression: Lumbar radiculopathy Disposition: 01 HOME, SELF-CARE Condition: Improved Departure-Patient Inst. Decision time for Depature: 16:33 (SPENCER MACDONALD APRN) Referrals: [facility] [place] ([place]) Primary Care Physician Patient Instructions: Radiculopathy Add. Discharge Instructions: Plan: 1. Establish with a primary care provider of your choice. Physical therapy may be beneficial for pain/symptoms. 2. Take Ibuprofen 600mg every 6 hours as needed for pain. Do not take more than 3 days at higher dose. Take with food. May also take Tylenol as needed for pain per package. 3. Try stretching exercises as shown, applying ice or warm pack 20 minutes at a time. 4. Avoid aggravating symptoms. 5. Return for any new, concerning, or worsening symptoms. All discharge instructions reviewed with patient and/or family. Voiced understanding. ATTENDING PHYSICIAN NOTE: I was physically present as attending physician in the emergency department during the care of this patient, but I was not directly involved in the decision making or delivery of care for this patient. (GARY NUNO MD) Copy Copies To 1: [facility]/ SPENCER MACDONALD APRN Nov 14, 2020 15:38 GARY NUNO MD Nov 14, 2020 18:33
[2020-11-14] MEDS ORDERED: KETOROLAC 30 MG/ML VIAL IM ONE (15:45)
[2020-11-14] MEDS ORDERED: ORPHENADRINE 60 MG/2 ML (NORFLEX) AMP (ED ONLY) IM ONE (15:45)
--- NOTE | 2020-11-14 16:14 | Diagnostic Imaging Report ---
INDICATION: Low back pain, radiculopathy. COMPARISON: 08/04/2009 FINDINGS: Three views of the lumbar column demonstrate new degenerative disc disease with endplate osteophytosis at the L4-L5 level. Alignment is normal. There is no subluxation, fracture or osseous lesion. SI joints are symmetric. IMPRESSION: New degenerative changes at L4-L5. Dictated by: Dictated on workstation # [id number]
[2020-11-14 16:27] VITALS: BP 111/73
== END 2020-11-14 16:27 | disposition home or self-care (01) ==
LOC: EDUNIT# 15:12 → ER 15:15
DX: M54.16 Radiculopathy, lumbar region (principal); F17.210 Nicotine dependence, cigarettes, uncomplicated
CPT/HCPCS: 72100; 96372

== ENCOUNTER 2021-04-19 08:29 | Emergency (ER) | payer SELFPAY ==
[~2021-04-19 08:29] MED LIST changes: -LEVO500T80 PO; +LEVO500T81 PO; -SULF1TAB35 PO; +SULF1TAB38 PO
== END 2021-04-19 09:46 | disposition left against medical advice (07) ==
LOC: EDUNIT# 08:29 → ER 08:33
DX: R06.02 Shortness of breath (principal)

== ENCOUNTER 2021-06-08 04:25 | Emergency (ER) | payer SELFPAY ==
[~2021-06-08] VITALS: Ht 165 cm; Wt 75.0 kg
[2021-06-08 04:28] VITALS: BP 127/90
--- NOTE | 2021-06-08 04:44 | ED General ---
General Stated Complaint: COLD Source of Information: Patient, EMS History of Present Illness Date Seen by Provider: Jun 08, 2021 Time Seen by Provider: 04:30 Initial Comments PT ARRIVES VIA EMS PT CALLED EMS BECAUSE HE WAS COLD--ESPECIALLY FINGERS AND TOES. PT IS ESSENTIALLY HOMELESS, BUT HAD BEEN STAYING WITH A FRIEND IN [place] THEY [facility] THE [facility] AND GOT INTO AN ARGUMENT AND FRIEND LEFT. PT LEFT THE [employer] AROUND 0100, AND HAS BEEN WALKING OUTSIDE FOR THE LAST 3 HOURS--TEMP OUTSIDE IS 20 DEGREES WITH WINDCHILL OF 12 DEGREES PT IS WEARING SHIRT, HOODED SWEATSHIRT AND A COAT, AND A PAIR OF JEANS, SOCKS AND THICK SOLED TENNIS SHOES EMS HAS GIVEN PT A HAND WARMER PACK PT WALKED TO THE [employer] AT [address] AND [address], AND THEN CALLED EMS HE REPORTS THAT HIS BROTHER LIVES [address] IN [place], BUT CALLED EMS BECAUSE HE DIDN'T KNOW IF HE COULD MAKE IT PT HAS NOT ATTEMPTED TO CALL HIS BROTHER, PT HAS A CELL PHONE BUT GIVES NO EXPLANATION TO WHY HE DID NOT TRY TO CALL HIS BROTHER, THEN LATER STATES "I DIDN'T KNOW IF THERE WAS ANY WI-FI" DENIES DRINKING ANY ALCOHOL TONIGHT DENIES ANY CHRONIC MEDICAL PROBLEMS NO FEVER OR RECENT ILLNESS PCP: MAGEN-KELLEE Allergies and Home Medications Allergies Coded Allergies: NKANo Known Allergies (Unverified Allergy, Mild, 10/12/08) Patient Home Medication List Home Medication List Reviewed: Yes Levofloxacin (Levofloxacin) 500 Mg Tablet, 500 MG PO DAILY Prescribed by: SIERRA LEMA on 04/25/20 0847 Sulfamethoxazole/Trimethoprim (Bactrim Ds Tablet) 1 Each Tablet, 1 EACH PO BID Prescribed by: DEVAUGHN IVEY on 10/05/20 0521 Review of Systems Review of Systems Constitutional: no symptoms reported EENTM: no symptoms reported Respiratory: no symptoms reported Cardiovascular: no symptoms reported Gastrointestinal: no symptoms reported Genitourinary: no symptoms reported Musculoskeletal: see HPI Skin: no symptoms reported Psychiatric/Neurological: No Symptoms Reported Hematologic/Lymphatic: No Symptoms Reported Past Abzugol-Wlkolx-Pjldie Hx Patient Social History Tobacco Use?: Yes Tobacco type used: Cigarettes Smoking Status: Current Everyday Smoker Substance use?: Yes Substance type: Marijuana Alcohol Use?: Yes Alcohol type: Beer, Hard Liquor Alcohol Frequency: Daily Immunizations Up To Date Tetanus Booster (TDap): More than 5yrs Past Medical History Surgeries: Yes Gallbladder Respiratory: No Cardiac: No Neurological: No Reproductive Disorders: No Gastrointestinal: Yes Gall Bladder Disease Musculoskeletal: No Endocrine: No Cancer: No Psychosocial: Yes (marijuana use) Integumentary: No Blood Disorders: No Family Medical History No Pertinent Family Hx, Hypertension SOCIAL HISTORY: -SMOKES 1 PPD -ETOH--DAILY USE--HARD LIQUOR + BEER -DRUGS--FREQUENT MARIJUANA USE Physical Exam Vital Signs Vital Signs - First Documented 06/08/21 04:28 Temp 36.3 Pulse 84 Resp 16 B/P (MAP) 127/90 (102) Pulse Ox 99 O2 Delivery Room Air Capillary Refill : Height, Weight, BMI Height: 5'5.00" Weight: 165lbs. oz. 74.713706zh; 21.00 BMI Method:Stated General Appearance: No Apparent Distress, WD/WN HEENT: Normal ENT Inspection Neck: Normal Inspection Respiratory: Normal Breath Sounds, No Accessory Muscle Use, No Respiratory Distress Cardiovascular: Regular Rate, Rhythm, No Edema, No Murmur, Normal Peripheral Pulses Gastrointestinal: Soft Extremity: No Pedal Edema, Other (HANDS ARE WARM AND PINK WITH GOOD CAPILLARY REFILL. NO SIGNS OF FROSTBITE. FEET AND TOES ARE COLD WITH SLOW CAPILLARY REFILL, NO SIGNS OF FROSTBITE. ) Neurologic/Psychiatric: Alert, Oriented x3, No Motor/Sensory Deficits, Normal Mood/Affect, dyslexia teacher II-XII Norm as Tested Skin: Normal Color, Warm/Dry Progress/Results/Core Measures Suspected Sepsis SIRS Temperature: Pulse: Respiratory Rate: Blood Pressure / Mean: Results/Orders Vital Signs/I&O 06/08/21 04:28 Temp 36.3 Pulse 84 Resp 16 B/P (MAP) 127/90 (102) Pulse Ox 99 O2 Delivery Room Air Capillary Refill : Progress Note : Progress Note GIVEN MULTIPLE WARM BLANKETS AND CONTINUED HAND WARMERS WARM PACKS PLACED ON FEET AND FEET WRAPPED IN WARM BLANKETS. 0505--PT HAS KICKED OFF WARM PACKS AND BLANKETS FROM HIS FEET. STATES HE FEELS FINE NOW. HANDS AND FEET ARE WARM AND PINK WITH GOOD CAPILLARY REFILL. NO EVIDENCE OF FROSTBITE AT THIS TIME PT HAS NOT ATTEMPTED TO CONTACT HIS BROTHER OR ANYONE ELSE TO PICK HIM UP. OFFERED PORTABLE PHONE FROM HOSPITAL, WHICH HE REFUSED. PT AMBULATES OUT OF ER WITHOUT DIFFICULTY Departure Impression Primary Impression: Exposure to environmental cold Disposition: 01 HOME, SELF-CARE Condition: Improved Departure-Patient Inst. Decision time for Depature: 05:05 Referrals: [facility] (PCP/Family) Primary Care Physician Patient Instructions: Hypothermia Add. Discharge Instructions: WARM FLUIDS AND BLANKETS FOLLOW UP WITH [facility] NEEDED MAI PISANO DO Jun 08, 2021 04:44
== END 2021-06-08 05:14 | disposition home or self-care (01) ==
LOC: EDUNIT# 04:25 → ER 04:27
DX: T69.9XXA Effect of reduced temperature, unspecified, initial encounter (principal); F17.210 Nicotine dependence, cigarettes, uncomplicated
CPT/HCPCS: 99283

== ENCOUNTER 2021-06-14 17:25 | Emergency (ER) | payer SELFPAY ==
[~2021-06-14] VITALS: Ht 170 cm; Wt 72.0 kg
[2021-06-14 17:27] VITALS: BP 122/72
[2021-06-14] MEDS ORDERED: HYDROcodone/APAP 5 MG/325 MG (LORTAB) TAB PO ONE (17:30)
[2021-06-14] MEDS ORDERED: IBUPROFEN 800 MG (MOTRIN) TAB PO ONE (17:30)
--- NOTE | 2021-06-14 17:30 | ED Hip Pain/Injury ---
General Chief Complaint: Hip/Pelvic Problems Stated Complaint: HIP PAIN Source: patient Exam Limitations: no limitations History of Present Illness Date Seen by Provider: Jun 14, 2021 Time Seen by Provider: 17:28 Initial Comments To ER by EMS with reports of left anterior hip pain that occurred last night at about 1 AM when he fell. He did not land on his hip but he now has pain. He walked out to the ambulance and then walked into the emergency room. He states he does not have a place to stay and was recently in the hospital for frostbite. Timing/Duration: just prior to arrival Severity: moderate Location: hip (L) Method of Injury: fell Associated Symptoms: denies symptoms Allergies and Home Medications Allergies Coded Allergies: NKANo Known Allergies (Unverified Allergy, Mild, 10/12/08) Patient Home Medication List Home Medication List Reviewed: Yes Levofloxacin (Levofloxacin) 500 Mg Tablet, 500 MG PO DAILY Prescribed by: SIERRA LEMA on 04/25/20 0847 Sulfamethoxazole/Trimethoprim (Bactrim Ds Tablet) 1 Each Tablet, 1 EACH PO BID Prescribed by: DEVAUGHN IVEY on 10/05/20 0521 Review of Systems Constitutional: see HPI EENTM: see HPI Respiratory: no symptoms reported Cardiovascular: no symptoms reported Genitourinary: no symptoms reported Musculoskeletal: see HPI Skin: no symptoms reported Psychiatric/Neurological: No Symptoms Reported Past Pppszpp-Nhoklr-Alpvcg Hx Immunizations Up To Date Tetanus Booster (TDap): More than 5yrs First/Initial COVID19 Vaccinat: N/A Past Medical History Surgeries: Yes Gallbladder Respiratory: No Cardiac: No Neurological: No Reproductive Disorders: No Gastrointestinal: Yes Gall Bladder Disease Musculoskeletal: No Endocrine: No Cancer: No Psychosocial: Yes (marijuana use) Integumentary: No Blood Disorders: No Family Medical History No Pertinent Family Hx, Hypertension SOCIAL HISTORY: -SMOKES 1 PPD -ETOH--DAILY USE--HARD LIQUOR + BEER -DRUGS--FREQUENT MARIJUANA USE Physical Exam Vital Signs Capillary Refill : Height, Weight, BMI Height: 5'5.00" Weight: 165lbs. oz. 74.981330cc; 27.00 BMI Method:Stated General Appearance: No Apparent Distress, WD/WN Cardiovascular: Regular Rate, Rhythm, Normal Peripheral Pulses Respiratory: Normal Breath Sounds, No Accessory Muscle Use, No Respiratory Distress Gastrointestinal: Normal Bowel Sounds, Non Tender, Soft Extremity: Normal Capillary Refill, Normal Inspection, Other (Tender to palpation of the anterior superior iliac crest.) Neurologic/Psychiatric: Alert, Oriented x3 Skin: Normal Color, Warm/Dry Progress/Results/Core Measures Results/Orders My Orders Orders - RODRÍGUEZ MERA APRN Hydrocodone/Apap 5/325 Tablet (Lortab 5 (06/14/21 17:30) Pelvis (06/14/21 17:27) Ibuprofen Tablet (Motrin Tablet) (06/14/21 17:30) Departure Impression Primary Impression: Hip strain Disposition: HOME, SELF-CARE Condition: Stable Departure-Patient Inst. Decision time for Depature: 17:29 Referrals: [facility] (PCP/Family) Primary Care Physician Patient Instructions: Hip Pain (DC) Add. Discharge Instructions: 1. Return to ER for any concerns 2. Follow with your doctor next week All discharge instructions reviewed with patient and/or family. Voiced understanding. RODRÍGUEZ MERA APRN Jun 14, 2021 17:30
--- NOTE | 2021-06-14 17:43 | Diagnostic Imaging Report ---
EXAMINATION: Pelvis, single view. COMPARISON: None. HISTORY: 31-year-old male, fall. Left hip pain. FINDINGS: The hips are not obviously dislocated. There is no joint space loss of either hip. The pubic symphysis and sacroiliac joints are normally aligned. There is no identified acute fracture. There is no radiopaque foreign body. Imaged portions of the lower lumbar spine are grossly unremarkable in appearance. IMPRESSION: No identified acute bony abnormality of the pelvis or either hip. Dictated by: Dictated on workstation # [id number]
== END 2021-06-14 17:48 | disposition home or self-care (01) ==
LOC: EDUNIT# 17:25 → ER 17:26
DX: S76.012A Strain of muscle, fascia and tendon of left hip, initial encounter (principal); F17.210 Nicotine dependence, cigarettes, uncomplicated; W19.XXXA Unspecified fall, initial encounter
CPT/HCPCS: 72170

== ENCOUNTER 2021-06-22 00:10 | Emergency (ER) | payer SELFPAY ==
[~2021-06-22] VITALS: Ht 165 cm; Wt 74.0 kg
[2021-06-22] MEDS ORDERED: IBUPROFEN 800 MG (MOTRIN) TAB PO ONE (00:45)
--- NOTE | 2021-06-22 00:47 | ED Lower Extremity ---
General Chief Complaint: Lower Extremity Stated Complaint: POSS LEG FACTURE Nursing Triage Note: PT BROUGHT VIA [employer]. EMS, BLS. PT REPORTS HE SLIPPED ON ICE AND FELL OFF HIS FRONT PORCH. C/O LEFT LEG AND KNEE PAIN, NO VISUAL DEFORMITY. EMS REPORTS PT WAS ACTUALLY FOUND BEHIND A SHED AT THE BACK OF BROTHERS HOUSE. GLASSES ON PT, RIGHT LENS MISSING FRAME BROKEN. PT ALERT AND ORIENTED X'S 4. PT IN ROOM 03. Source: patient Exam Limitations: no limitations History of Present Illness Date Seen by Provider: Jun 22, 2021 Time Seen by Provider: 00:35 Initial Comments Patient is a 31-year-old male who presents to the emergency department with a chief complaint of left tibia pain. Patient states he was walking up a ramp at his brother's house to talk to his mom when he slipped on some ice. Twisted and fell on his left leg. States he did not hit his head or have a loss of consciousness. Denies any source of pain elsewhere in his body. No chest pain or shortness of breath no abdominal pain nausea vomiting or diarrhea. States that it hurts to bear weight on the left leg. No recent illnesses. All other review of systems reviewed and negative except as stated. Onset: just prior to arrival Pain/Injury Location: left leg Method of Injury: fell Modifying Factors: Worse With Movement; Improves With Rest Allergies and Home Medications Allergies Coded Allergies: NKANo Known Allergies (Unverified Allergy, Mild, 10/12/08) Patient Home Medication List Home Medication List Reviewed: Yes Levofloxacin (Levofloxacin) 500 Mg Tablet, 500 MG PO DAILY Prescribed by: SIERRA LEMA on 04/25/20 0847 Sulfamethoxazole/Trimethoprim (Bactrim Ds Tablet) 1 Each Tablet, 1 EACH PO BID Prescribed by: DEVAUGHN IVEY on 10/05/20 0521 Review of Systems Constitutional: see HPI EENTM: no symptoms reported Respiratory: no symptoms reported Cardiovascular: no symptoms reported Gastrointestinal: no symptoms reported Genitourinary: no symptoms reported Musculoskeletal: other (Left leg pain) Skin: no symptoms reported Psychiatric/Neurological: No Symptoms Reported All Other Systems Reviewed Negative Unless Noted: Yes Past Hojovph-Lzkcdl-Ikiarg Hx Patient Social History Tobacco Use?: Yes Tobacco type used: Cigarettes Smoking Status: Current Everyday Smoker Use of E-Cig and/or Vaping dev: No Substance use?: Yes Substance type: Methamphetamine, Marijuana Additional substance use comme: reports he used marijuana 06/19/21. Substance frequency: Couple times a week Alcohol Use?: Yes Alcohol type: Beer Alcohol Frequency: Once in a while Pt feels they are or have been: No Immunizations Up To Date Tetanus Booster (TDap): More than 5yrs First/Initial COVID19 Vaccinat: N/A Past Medical History Surgery/Hospitalization HX: PMH: Denies. Surgery: Gallbladder removal 2019. Surgeries: Yes Gallbladder Respiratory: No Cardiac: No Neurological: No Reproductive Disorders: No Gastrointestinal: Yes Gall Bladder Disease Musculoskeletal: No Endocrine: No Cancer: No Psychosocial: Yes (marijuana use) Integumentary: No Blood Disorders: No Family Medical History No Pertinent Family Hx, Hypertension SOCIAL HISTORY: -SMOKES 1 PPD -ETOH--DAILY USE--HARD LIQUOR + BEER -DRUGS--FREQUENT MARIJUANA USE Physical Exam Vital Signs Vital Signs - First Documented Capillary Refill : Less Than 3 Seconds Height, Weight, BMI Height: 5'5.00" Weight: 165lbs. oz. 74.040363gw; 27.00 BMI Method:Stated General Appearance: WD/WN, no apparent distress HEENT: PERRL/EOMI Neck: non-tender, full range of motion, normal inspection Cardiovascular: regular rate, rhythm Respiratory: lungs clear, normal breath sounds, no respiratory distress, no accessory muscle use Gastrointestinal: normal bowel sounds, non tender, soft Hips: bilateral hip non-tender, bilateral hip normal inspection, bilateral hip normal range of motion, bilateral hip no evidence of injury Legs: bilateral leg non-tender, bilateral leg normal inspection, bilateral leg normal range of motion, bilateral leg no evidence of injury; left leg other (Tenderness to the proximal left tibia without swelling, good range of motion, no knee effusion, no left knee joint laxity. No abrasions or lacerations. No ecchymosis) Knees: bilateral knee non-tender, bilateral knee normal inspection, bilateral knee normal range of motion, bilateral knee no evidence of injury Ankles: bilateral ankle non-tender, bilateral ankle normal inspection, bilateral ankle normal range of motion, bilateral ankle no evidence of injury Feet: bilateral foot non-tender, bilateral foot normal inspection, bilateral foot normal range of motion, bilateral foot no evidence of injury Neurologic/Tendon: normal sensation, normal motor functions, normal tendon functions Neurologic/Psychiatric: no motor/sensory deficits, alert, normal mood/affect, oriented x 3 Skin: normal color, warm/dry Progress/Results/Core Measures Results/Orders My Orders Orders - SIERRA LEMA MD Ibuprofen Tablet (Motrin Tablet) (06/22/21 00:45) Vital Signs/I&O 06/22/21 06/22/21 00:11 00:11 Temp 36.0 36.0 Pulse 65 65 Resp 18 18 B/P (MAP) 126/87 126/87 (100) Pulse Ox 100 100 O2 Delivery Room Air Room Air Blood Pressure Mean: 100 Departure Impression Primary Impression: Left leg pain Disposition: HOME, SELF-CARE Condition: Stable Departure-Patient Inst. Decision time for Depature: 00:46 Referrals: [facility] (PCP/Family) Primary Care Physician Patient Instructions: Minor Contusion ED Add. Discharge Instructions: You can use an ice pack to the sore area of your leg for 20 minutes at a time 3- 4 times daily. [id number]-[id number] ibuprofen, 3 tablets which is 600 mg every 6-8 hours with food as needed for pain. Follow-up with your primary care physician. Return to the emergency department for any new, concerning or emergent complaints. SIERRA LEMA MD Jun 22, 2021 00:47
[2021-06-22 00:50] VITALS: BP 123/77
== END 2021-06-22 00:50 | disposition home or self-care (01) ==
LOC: EDUNIT# 00:10 → ER 00:11
DX: M79.605 Pain in left leg (principal); F17.210 Nicotine dependence, cigarettes, uncomplicated
CPT/HCPCS: 99283

== ENCOUNTER 2022-02-25 08:43 | Emergency (ER) | payer SELFPAY ==
[~2022-02-25] VITALS: Ht 167 cm; Wt 74.8 kg
[~2022-02-25 08:43] MED LIST changes: +LEVO-55 PO; -LEVO500T81 PO
--- NOTE | 2022-02-25 09:45 | ED Back Pain ---
General Chief Complaint: Back Problems Stated Complaint: FALL/BACK PAIN Nursing Triage Note: PT PRESENTS TO ED VIA POV FOR COMPLAINTS OF CHRONIC BACK PAIN THAT HAS INCREASED SINCE THURSDAY. PT DENIES ANY RECENT INJURY. Source of Information: Patient Exam Limitations: No Limitations History of Present Illness Date Seen by Provider: Feb 25, 2022 Time Seen by Provider: 09:30 Initial Comments Patient is a 32-year-old male, homeless, methamphetamine abuser who presents to the emergency department with a chief complaint of back pain. Patient states that he has had a history of back pain for "years". He states his pain has increased since yesterday as he was walking around town. He states at 1 point his legs became so weak he went to the ground. He denies numbness in his lower extremities. The pain does not radiate into his legs. No loss of bowel or bladder function. He states he is able to urinate when he needs to. He does have chronic loose stools secondary to cholecystectomy in the past. No fevers or chills. No headache. No chest pain or shortness of breath. No burning with urination, black or bloody stools. He has not taken anything because he did not "want to bother anybody". He is requesting an x-ray. He tells me that he has been kicked out of multiple residential houses and psych facilities/rehab facilities including [facility], [facility] etc. All other review of systems reviewed and negative except as stated. Timing/Duration: 1 Day Severity: Moderate Pain/Injury Location: Back Associated Symptoms: No fever, No weakness, No numbness in legs/feet, No tingling in legs/feet, No sensory/motor loss; lower back pain; No loss of bladder control, No loss of bowel control Allergies and Home Medications Allergies Coded Allergies: NKANo Known Allergies (Unverified Allergy, Mild, 10/12/08) Patient Home Medication List Home Medication List Reviewed: Yes No Active Prescriptions or Reported Meds Review of Systems Constitutional: see HPI EENTM: no symptoms reported Respiratory: no symptoms reported Cardiovascular: no symptoms reported Gastrointestinal: no symptoms reported Genitourinary: no symptoms reported Musculoskeletal: back pain (entire back) Psychiatric/Neurological: Emotional Problems (mental health issues) All Other Systems Reviewed Negative Unless Noted: Yes Past Znslxzp-Oyjhxk-Hthgnh Hx Patient Social History Tobacco Use?: Yes Tobacco type used: Cigarettes Smoking Status: Current Everyday Smoker Substance use?: Yes Substance type: Methamphetamine Additional substance use comme: LAST USED METH ON 02/23/22 Alcohol Use?: Yes Alcohol Frequency: Couple times a week Pt feels they are or have been: No Immunizations Up To Date Tetanus Booster (TDap): More than 5yrs First/Initial COVID19 Vaccinat: N/A Second COVID19 Vaccination [place]: N/A Third COVID19 Vaccination Date: N/A Past Medical History Surgery/Hospitalization HX: PMH: Denies. Surgery: Gallbladder removal 2019. Surgeries: Yes Gallbladder Respiratory: No Cardiac: No Neurological: No Reproductive Disorders: No Gastrointestinal: Yes Gall Bladder Disease Musculoskeletal: No Endocrine: No Cancer: No Psychosocial: Yes (marijuana use) Integumentary: No Blood Disorders: No Family Medical History No Pertinent Family Hx, Hypertension SOCIAL HISTORY: -SMOKES 1 PPD -ETOH--DAILY USE--HARD LIQUOR + BEER -DRUGS--FREQUENT MARIJUANA USE Physical Exam Vital Signs Vital Signs - First Documented 02/25/22 09:28 Temp 35.9 Pulse 109 Resp 16 B/P (MAP) 111/71 (84) Capillary Refill : Less Than 3 Seconds Height, Weight, BMI Height: 5'5.00" Weight: 165lbs. oz. 74.207816nb; 26.00 BMI Method:Stated General Appearance: No Apparent Distress, Thin HEENT: PERRL/EOMI Neck: Full Range of Motion Cardiovascular: Regular Rate, Rhythm, No Murmur Respiratory: Lungs Clear, Normal Breath Sounds, No Accessory Muscle Use, No Respiratory Distress Gastrointestinal: Non Tender, Soft Back: Normal Inspection; No Decreased Range of Motion, No Muscle Spasm; Vertebral Tenderness (entire spine from C7 to sacrum) Extremity: Normal Capillary Refill, Normal Inspection, Normal Range of Motion, Non Tender, No Calf Tenderness, No Pedal Edema Neurologic/Psychiatric: Alert, Oriented x3, No Motor/Sensory Deficits (5/5 motor strngth suman LE; normal sensation; no saddle anesthesia), Depressed Affect Skin: Normal Color, Warm/Dry Progress/Results/Core Measures Results/Orders Vital Signs/I&O 02/25/22 09:28 Temp 35.9 Pulse 109 Resp 16 B/P (MAP) 111/71 (84) Blood Pressure Mean: 84 Progress Progress Note : Time: 09:44 Progress Note Patient seen and examined, acute exacerbation of chronic back pain. No injury. Neurologic exam is normal. Will provide p.o. medications. Recommend follow-up with [facility] for further management of chronic back pain. Departure Impression Primary Impression: Back pain Qualified Codes: M54.9 - Dorsalgia, unspecified; G89.29 - Other chronic pain Disposition: 01 HOME, SELF-CARE Condition: Stable Departure-Patient Inst. Decision time for Depature: 09:45 Referrals: [facility] (PCP/Family) Primary Care Physician Patient Instructions: Upper Back Pain (DC) Add. Discharge Instructions: Over the counter Tylenol extra strength, 2 tablets every 6 hours as needed for pain. Alternate with Ibuprofen 600mg every 6 hours with food for pain. Follow up with [facility] to get on your psych meds and for further evaluation and management of your chronic back pain. Return to the Emergency Department for any new, concerning or emergent complaints. Scripts No Active Prescriptions or Reported Meds Copy Copies To 1: IGNACIO HERNANDEZ KATHRYN M MD Feb 25, 2022 09:45
[2022-02-25] MEDS ORDERED: METHOCARBAMOL 750 MG (ROBAXIN) TAB PO ONE (10:00)
[2022-02-25] MEDS ORDERED: IBUPROFEN 600 MG (MOTRIN) TAB PO ONE (10:00)
[2022-02-25 10:17] VITALS: BP 111/71
== END 2022-02-25 10:16 | disposition home or self-care (01) ==
LOC: EDUNIT# 08:43 → ER 08:45
DX: M54.50 Low back pain, unspecified (principal); M54.6 Pain in thoracic spine; M54.2 Cervicalgia; M53.3 Sacrococcygeal disorders, not elsewhere classified; G89.29 Other chronic pain; F17.210 Nicotine dependence, cigarettes, uncomplicated
CPT/HCPCS: 99283

== ENCOUNTER 2022-02-26 20:38 | Emergency (ER) | payer SELFPAY ==
[~2022-02-26] VITALS: Ht 165.1 cm; Wt 72.5 kg
[2022-02-26 22:59] LABS: ACETAMINOPHEN < 10 UG/ML (10-30); ALANINE AMINOTRANSFERASE 78 U/L (0-55); ALBUMIN 4.2 GM/DL (3.2-4.5); ALKALINE PHOSPHATASE 73 U/L (40-136); BILIRUBIN,TOTAL 1.5 MG/DL (0.1-1.0); BUN/CREATININE RATIO 13; CALCIUM 10.1 MG/DL (8.5-10.1); CARBON DIOXIDE 29 MMOL/L (21-32); CHLORIDE 103 MMOL/L (98-107); CREATININE SERUM 0.91 MG/DL (0.60-1.30); GFR ESTIMATED 113; GLUCOSE 160 MG/DL (70-105); POTASSIUM 3.8 MMOL/L (3.6-5.0); SALICYLATE < 5.0 MG/DL (5.0-20.0); SODIUM 140 MMOL/L (135-145); TOTAL PROTEIN 7.4 GM/DL (6.4-8.2)
[2022-02-26 23:11] LABS: HEMATOCRIT 46 % (40-54); HEMOGLOBIN 15.6 g/dL (13.3-17.7); MEAN CORPUSCULAR HEMOGLOBIN 31 pg (25-34); MEAN CORPUSCULAR HGB CONC 34 g/dL (32-36); MEAN CORPUSCULAR VOLUME 92 fL (80-99); WHITE BLOOD COUNT 9.3 10^3/uL (4.3-11.0)
[2022-02-26 23:12] LABS: BASOPHILS % (AUTO) 0 % (0-10); EOSINOPHILS # (AUTO) 0.1 10^3/uL (0.0-0.3); EOSINOPHILS % (AUTO) 1 % (0-10); LYMPHOCYTES # (AUTO) 1.1 X 10^3 (1.0-4.0); LYMPHOCYTES % (AUTO) 12 % (12-44); MONOCYTES # (AUTO) 0.8 X 10^3 (0.0-1.0); MONOCYTES % (AUTO) 8 % (0-12); NEUTROPHILS # (AUTO) 7.4 X 10^3 (1.8-7.8); NEUTROPHILS % (AUTO) 79 % (42-75); PLATELET COUNT 241 10^3/uL (130-400)
--- NOTE | 2022-02-26 23:24 | ED Psychosocial ---
General Chief Complaint: Suicidal Ideation Risk Stated Complaint: SUICIDAL IDEATION Nursing Triage Note: PT AMB TO RM 8 WITH EMS WITH CC OF SUICIDAL IDEATION. PT STATES HAS PLAN TO HANG HIMSELF WITH HIS BELT. PT STATES BELIEVES PEOPLE ARE TRYING TO HURT HIM AND FOLLOW HIM. PT STATES "PEOPLE WOULD BE BETTER OFF WITHOUT HIM HERE. PT REPORTS LAST METH USE WAS 5 DAYS AGO. PT STATES HAS NO SUPPORT HERE AND IS HOMELESS. PT IS TEARFUL WHILE SPEAKING TO THIS NURSE. HX OF ANXIETY AND DEPRESSION. STATES LAST ATTEMPT WAS 2 YEARS AGO Source: patient, EMS Exam Limitations: no limitations History of Present Illness Date Seen by Provider: Feb 26, 2022 Time Seen by Provider: 20:39 Initial Comments This 32-year-old gentleman presents to the emergency room via EMS with suicidal ideation. He had a plan to hang himself but did not have any access to ropes. He plan to hang himself with a belt but then changed his mind because he did not want to cause his mother any suffering by his . He reports an attempt to hang himself with a belt about 2 years ago, and he did not receive any care for that incident. He reports prior admissions in [place] for behavioral health disturbances. He has history of anxiety and depression. Patient self reported his suicidal ideation and called EMS himself tonight. He has history of alcohol, marijuana, and methamphetamine use. It has been about a month since his last alcohol use. He has not used marijuana or methamphetamine in about 5 days per his report. He states he feels like people would be better off if he killed himself. He also reports feeling paranoid that people are following him and wanting to hurt him. He was quite upset and tearful when EMS arrived. David storm prefers to go by the nickname "[email or web address]". He is essentially homeless and reports no significant support system in the area. He sometimes sleeps outside. Allergies and Home Medications Allergies Coded Allergies: NKANo Known Allergies (Unverified Allergy, Mild, 10/12/08) Patient Home Medication List Home Medication List Reviewed: Yes No Active Prescriptions or Reported Meds Review of Systems Constitutional: no symptoms reported EENTM: no symptoms reported Respiratory: no symptoms reported Cardiovascular: no symptoms reported Gastrointestinal: no symptoms reported Genitourinary: no symptoms reported Musculoskeletal: no symptoms reported Skin: no symptoms reported Psychiatric/Neurological: See HPI Past Jyxpaxb-Hcwpft-Scakkr Hx Patient Social History Tobacco Use?: No Substance use?: Yes Substance type: Methamphetamine, Marijuana Substance frequency: Daily Alcohol Use?: Yes Pt feels they are or have been: No Immunizations Up To Date Tetanus Booster (TDap): More than 5yrs First/Initial COVID19 Vaccinat: N/A Second COVID19 Vaccination [place]: N/A Third COVID19 Vaccination Date: N/A Past Medical History Surgery/Hospitalization HX: PMH: Denies. Surgery: Gallbladder removal 2019. Surgeries: Yes Gallbladder Respiratory: No Cardiac: No Neurological: No Reproductive Disorders: No Genitourinary: No Gastrointestinal: Yes Gall Bladder Disease Musculoskeletal: No Endocrine: No HEENT: No Cancer: No Psychosocial: Yes (marijuana use) Integumentary: No Blood Disorders: No Family Medical History No Pertinent Family Hx, Hypertension SOCIAL HISTORY: -SMOKES 1 PPD -ETOH--DAILY USE--HARD LIQUOR + BEER -DRUGS--FREQUENT MARIJUANA USE Physical Exam Vital Signs - First Documented 02/26/22 20:40 Temp 36.4 Pulse 100 Resp 18 B/P (MAP) 119/78 (92) Pulse Ox 98 O2 Delivery Room Air Capillary Refill : Less Than 3 Seconds Height, Weight, BMI Height: 5'5.00" Weight: 165lbs. oz. 74.825884ci; 26.00 BMI Method:Stated General Appearance: WD/WN, mild distress (Anxious, tearful) HEENT: PERRL/EOMI, normal ENT inspection, other (Poor dentition, mucous membranes moist) Neck: normal inspection Respiratory: lungs clear, normal breath sounds, no respiratory distress Cardiovascular: regular rate, rhythm, no edema, no murmur Gastrointestinal: normal bowel sounds, non tender, soft Extremities: normal inspection, no pedal edema Neurologic/Psychiatric: no motor/sensory deficits, alert, normal mood/affect, oriented x 3 Appearance/Memory: appropriate appearance, no memory impairment Behavior/Eye Contact: cooperative, avoids eye contact Thoughts/Hallucinations: no apparent hallucination, paranoid Skin: normal color, warm/dry Progress/Results/Core Measures Results/Orders Lab Results Laboratory Tests Test 02/26/22 20:50 02/26/22 21:01 Range/Units White Blood Count 9.3 4.3-11.0 10^3/uL Red Blood Count 5.02 4.30-5.52 10^6/uL Hemoglobin 15.6 13.3-17.7 g/dL Hematocrit 46 40-54 % Mean Corpuscular Volume 92 80-99 fL Mean Corpuscular Hemoglobin 31 25-34 pg Mean Corpuscular Hemoglobin Concent 34 32-36 g/dL Red Cell Distribution Width 12.5 10.0-14.5 % Platelet Count 241 130-400 10^3/uL Mean Platelet Volume 10.0 9.0-12.2 fL Immature Granulocyte % (Auto) 0 % Neutrophils (%) (Auto) 79 H 42-75 % Lymphocytes (%) (Auto) 12 12-44 % Monocytes (%) (Auto) 8 0-12 % Eosinophils (%) (Auto) 1 0-10 % Basophils (%) (Auto) 0 0-10 % Neutrophils # (Auto) 7.4 1.8-7.8 X 10^3 Lymphocytes # (Auto) 1.1 1.0-4.0 X 10^3 Monocytes # (Auto) 0.8 0.0-1.0 X 10^3 Eosinophils # (Auto) 0.1 0.0-0.3 10^3/uL Basophils # (Auto) 0.0 0.0-0.1 10^3/uL Immature Granulocyte # (Auto) 0.0 0.0-0.1 10^3/uL Urine Color YELLOW Urine Clarity CLEAR Urine pH 6.0 5-9 Urine Specific [place] >=1.030 1.016-1.022 Urine Protein 1+ H NEGATIVE Urine Glucose (UA) NEGATIVE NEGATIVE Urine Ketones NEGATIVE NEGATIVE Urine Nitrite NEGATIVE NEGATIVE Urine Bilirubin NEGATIVE NEGATIVE Urine Urobilinogen 1.0 < = 1.0 MG/DL Urine Leukocyte Esterase NEGATIVE NEGATIVE Urine RBC (Auto) NEGATIVE NEGATIVE Urine RBC 0-2 /HPF Urine WBC 2-5 /HPF Urine Squamous Epithelial Cells 0-2 /HPF Urine Renal Epithelial Cells 0-2 /HPF Urine Crystals NONE /LPF Urine Calcium Oxalate Crystals RARE H /LPF Urine Bacteria MODERATE H /HPF Urine Casts NONE /LPF Urine Mucus NEGATIVE /LPF Urine Culture Indicated YES Urine Opiates Screen NEGATIVE NEGATIVE Urine Oxycodone Screen NEGATIVE NEGATIVE Urine Methadone Screen NEGATIVE NEGATIVE Urine Propoxyphene Screen NEGATIVE NEGATIVE Urine Barbiturates Screen NEGATIVE NEGATIVE Ur Tricyclic Antidepressants Screen POSITIVE H NEGATIVE Urine Phencyclidine Screen NEGATIVE NEGATIVE Urine Amphetamines Screen POSITIVE H NEGATIVE Urine Methamphetamines Screen POSITIVE H NEGATIVE Urine Benzodiazepines Screen NEGATIVE NEGATIVE Urine Cocaine Screen NEGATIVE NEGATIVE Urine Cannabinoids Screen NEGATIVE NEGATIVE Sodium Level 140 135-145 MMOL/L Potassium Level 3.8 3.6-5.0 MMOL/L Chloride Level 103 98-107 MMOL/L Carbon Dioxide Level 29 21-32 MMOL/L Anion Gap 8 5-14 MMOL/L Blood Urea Nitrogen 12 7-18 MG/DL Creatinine 0.91 0.60-1.30 MG/DL Estimat Glomerular Filtration Rate 113 BUN/Creatinine Ratio 13 Glucose Level 160 H 70-105 MG/DL Calcium Level 10.1 8.5-10.1 MG/DL Corrected Calcium 9.9 8.5-10.1 MG/DL Total Bilirubin 1.5 H 0.1-1.0 MG/DL Aspartate Amino Transf (AST/SGOT) 49 H 5-34 U/L Alanine Aminotransferase (ALT/SGPT) 78 H 0-55 U/L Alkaline Phosphatase 73 40-136 U/L Total Protein 7.4 6.4-8.2 GM/DL Albumin 4.2 3.2-4.5 GM/DL TSH [place] Testing 0.72 0.35-4.94 UIU/ML Salicylates Level < 5.0 L 5.0-20.0 MG/DL Acetaminophen Level < 10 L 10-30 UG/ML Serum Alcohol < 10 <10 MG/DL Influenza Type A (RT-PCR) Not Detected Not Detecte Influenza Type B (RT-PCR) Not Detected Not Detecte SARS-CoV-2 RNA (RT-PCR) Not Detected Not Detecte Micro Results Microbiology 02/26/22 Urine Culture - Final, Complete NO GROWTH My Orders Orders - GARY NUNO MD Ua Culture If Indicated (02/26/22 20:50) Cbc With Automated Diff (02/26/22 20:50) Comprehensive Metabolic Panel (02/26/22 20:50) Alcohol (02/26/22 20:50) Drug Screen Stat (Urine) (02/26/22 20:50) Acetaminophen (02/26/22 20:50) Salicylate (02/26/22 20:50) Ed Iv/Invasive Line Start (02/26/22 20:50) Thyroid Analyzer (02/26/22 20:50) Bh Status Checks/Observation O Q15M (02/26/22 20:50) Covid 19 Inhouse Test (02/26/22 20:50) Influenza A And B By Pcr (02/26/22 20:50) General/Regular (02/27/22 Breakfast) General/Regular (02/26/22 Dinner) Urine Culture (02/26/22 20:50) Ekg Tracing (02/26/22 20:46) Vital Signs/I&O 02/27/22 02/27/22 02/27/22 06:59 08:40 09:00 Temp 36.4 36.2 36.2 Pulse 73 76 76 Resp 16 16 B/P (MAP) 98/54 (69) 110/68 (82) 110/68 Pulse Ox 98 97 97 O2 Delivery Room Air Room Air Room Air Blood Pressure Mean: 92 Progress Progress Note #1: Time: 23:25 Progress Note Patient indicates he would be willing to consent to inpatient psychiatric care. Medical screening was unremarkable except for positive drug screen. Progress Note #2: Time: 06:00 Progress Note Screener recommended admission for dual diagnosis treatment. Placement if pending. Patient has been stable with no behavioral or medical issues. Departure Impression Primary Impression: Suicidal ideation Additional Impressions: Polysubstance abuse Paranoia Disposition: 65 XFER TO PSYCH HOSP/UNIT Condition: Stable Transfer Transfer Reason: Exceeds level of care Transfer Progress Notes Transferred to Transfer Time: 09:01 Transfer Facility: Transferred to [facility] by Justine Kong Method of Transfer: Departure-Patient Inst. Referrals: [facility] (PCP/Family) Primary Care Physician Patient Instructions: OUTPT MENTAL HEALTH SERVICES Scripts No Active Prescriptions or Reported Meds GARY NUNO MD Feb 26, 2022 23:24
[2022-02-26 23:25] LABS: BACTERIA,URINE MODERATE /HPF; BILIRUBIN,URINE NEGATIVE (NEGATIVE); CLARITY,URINE CLEAR; COLOR,URINE YELLOW; GLUCOSE, URINE (UA) NEGATIVE (NEGATIVE); KETONES,URINE NEGATIVE (NEGATIVE); LEUKOCYTE ESTERASE ,URINE NEGATIVE (NEGATIVE); NITRITE,URINE NEGATIVE (NEGATIVE); PROTEIN,URINE 1+ (NEGATIVE); RBC,URINE 0-2 /HPF; RENAL EPITHELIAL CELLS,URINE 0-2 /HPF; SQUAMOUS EPITHELIAL CELL,UR 0-2 /HPF
[2022-02-26 23:26] LABS: AMPHETAMINE SCREEN, URINE POSITIVE (NEGATIVE); BARBITURATE SCREEN URINE NEGATIVE (NEGATIVE); BENZODIAZEPINES SCREEN URINE NEGATIVE (NEGATIVE); CALCIUM OXALATE CRYSTALS,UR RARE /LPF; CANNABINOID SCREEN, URINE NEGATIVE (NEGATIVE); COCAINE SCREEN URINE NEGATIVE (NEGATIVE); METHADONE STAT NEGATIVE (NEGATIVE); OPIATE SCREEN URINE NEGATIVE (NEGATIVE); OXYCODONE STAT NEGATIVE (NEGATIVE); PROPOXYPHENE STAT NEGATIVE (NEGATIVE); TRICYCLIC ANTIDEPRESSANTS SCRE POSITIVE (NEGATIVE)
[2022-02-27 09:00] VITALS: BP 110/68
== END 2022-02-27 09:01 ==
LOC: EDUNIT# 20:38 → ER 20:38
DX: F19.10 Other psychoactive substance abuse, uncomplicated (principal); F22 Delusional disorders; R45.851 Suicidal ideations; F17.210 Nicotine dependence, cigarettes, uncomplicated; Z20.822 Contact with and (suspected) exposure to COVID-19; Z28.310 Unvaccinated for COVID-19
CPT/HCPCS: 80053; 80306; 81000; 84443; 85025; 87088; 87636; 93005; 99284; G0480 ×3; 36415; 80320; 80329

== ENCOUNTER 2022-05-16 22:24 | Emergency (ER) | payer SELFPAY ==
[~2022-05-16] VITALS: Ht 165 cm; Wt 68.0 kg
[~2022-05-16 22:24] MED LIST changes: +ALBU8.5H6 IH; -RT-ALBUINH IH
--- NOTE | 2022-05-16 23:51 | ED Cough/URI ---
General Chief Complaint: Cough/Cold/Flu Symptoms Stated Complaint: COUGH/ABD PAIN/CHEST CONGESTION/HEADACHE Nursing Triage Note: COMPLAINS OF COUGH AND ABDOMINAL PAIN X 3 WEEKS WITH NO IMPROVEMENT Source: patient Exam Limitations: no limitations History of Present Illness Date Seen by Provider: May 16, 2022 Time Seen by Provider: 23:40 Initial Comments Patient is a 32-year-old who presents to the emergency department today with a chief complaint of chest congestion, cough, upper abdominal pain, generalized weakness, decreased appetite, nausea, runny nose. Symptoms started about 3 weeks ago. He was seen at [facility] and tested for flu and COVID. He states these tests were negative. He continues to have worsening symptoms and states today he developed body aches "all over". He has not taken anything for the pain, no Tylenol, no ibuprofen. He has taken no kwpz-uuk-spsgmpi medications for congestion. He smokes 2 packs of cigarettes daily. He ran out of his Wellbutrin a week ago. He also takes hydroxyzine for anxiety. No problems with bowel or bladder. Complains of a rash to the right side of his neck and behind his left calf. He noticed the rashes today. Nothing makes his symptoms any better. No allergies to medications. Denies daily alcohol. Denies illicit drugs. Timing/Duration: other (2-3 weeks, worse today) Severity/Quality: moderate, dry cough Associated Symptoms: chest pain/soreness, headache, nasal congestion Allergies and Home Medications Allergies Coded Allergies: NKANo Known Allergies (Unverified Allergy, Mild, 10/12/08) Patient Home Medication List Home Medication List Reviewed: Yes No Active Prescriptions or Reported Meds Review of Systems Review of Systems Constitutional: malaise EENTM: nose congestion Respiratory: cough Cardiovascular: chest pain Gastrointestinal: nausea Genitourinary: no symptoms reported Musculoskeletal: muscle pain Skin: rash Psychiatric/Neurological: Headache Past Nogsnpi-Qnwrno-Jthrfp Hx Patient Social History Tobacco Use?: Yes Substance use?: Yes Substance type: Methamphetamine, Marijuana Alcohol Use?: Yes Alcohol Frequency: Once in a while Pt feels they are or have been: No Immunizations Up To Date Tetanus Booster (TDap): More than 5yrs First/Initial COVID19 Vaccinat: N/A Second COVID19 Vaccination [place]: N/A Third COVID19 Vaccination Date: N/A Past Medical History Surgery/Hospitalization HX: ANXIETY, DEPRESSION, SUBSTANCE ABUSE, SUICIDIAL IDEATION CHOLECYSTECTOMY Surgeries: Yes Gallbladder Respiratory: No Cardiac: No Neurological: No Reproductive Disorders: No Genitourinary: No Gastrointestinal: Yes Gall Bladder Disease Musculoskeletal: No Endocrine: No HEENT: No Cancer: No Psychosocial: Yes (marijuana use) Integumentary: No Blood Disorders: No Family Medical History No Pertinent Family Hx, Hypertension SOCIAL HISTORY: -SMOKES 1 PPD -ETOH--DAILY USE--HARD LIQUOR + BEER -DRUGS--FREQUENT MARIJUANA USE Physical Exam Vital Signs - First Documented 05/16/22 23:03 Temp 36.6 Pulse 96 Resp 18 B/P (MAP) 116/82 (93) Pulse Ox 99 O2 Delivery Room Air Capillary Refill : Height: 5'5.00" Weight: 165lbs. oz. 74.866481td; 24.00 BMI Method:Stated General Appearance: WD/WN, no apparent distress Eyes: Bilateral Eye Normal Inspection, Bilateral Eye PERRL, Bilateral Eye EOMI HEENT: PERRL/EOMI Neck: full range of motion, supple Respiratory: no respiratory distress, no accessory muscle use, wheezing (scattered expiratory wheeze bilaterally) Cardiovascular: regular rate, rhythm Gastrointestinal: normal bowel sounds, non tender, soft Extremities: normal range of motion, non-tender, no pedal edema Neurologic/Psychiatric: alert, normal mood/affect, oriented x 3 Skin: normal color, warm/dry Progress/Results/Core Measures Suspected Sepsis SIRS Temperature: Pulse: 96 Respiratory Rate: 18 Blood Pressure 116 /82 Mean: 93 Results/Orders Lab Results Laboratory Tests Test 05/16/22 23:51 Range/Units Influenza Type A (RT-PCR) Not Detected Not Detecte Influenza Type B (RT-PCR) Not Detected Not Detecte SARS-CoV-2 RNA (RT-PCR) Not Detected Not Detecte My Orders Orders - SIERRA LEMA MD Covid 19 Inhouse Test (05/16/22 23:46) Influenza A And B By Pcr (05/16/22 23:46) Isolation Central Supply Req (05/16/22 23:46) Ketorolac Injection (Toradol Injection) (05/17/22 00:00) Ondansetron Oral Dissolve Tab (Zofran (05/17/22 00:00) Chest Pa/Lat (2 View) (05/17/22 00:01) Medications Given in ED Current Medications Medications Dose Ordered Sig/Janak Route Start Time Stop Time Status Last Admin Dose Admin Ketorolac Tromethamine 30 mg ONCE ONCE IM 05/17/22 00:00 05/17/22 00:01 DC 05/16/22 23:51 30 MG Ondansetron HCl 8 mg ONCE ONCE PO 05/17/22 00:00 05/17/22 00:01 DC 05/16/22 23:50 8 MG Vital Signs/I&O 05/16/22 23:03 Temp 36.6 Pulse 96 Resp 18 B/P (MAP) 116/82 (93) Pulse Ox 99 O2 Delivery Room Air Capillary Refill : Blood Pressure Mean: 93 Progress Note : Time: 00:45 Progress Note Patient feels better after Toradol. Chest x-ray reviewed, no focal consolidative infiltrates. No effusions. His vital signs are stable, room air sats normal. Flu and COVID are Negative. I Talked to Him Extensively about Stopping Smoking. I Recommended Xckv-Dqo-Rzqhkkz Robitussin for His Cough. We Will Send Him Home with a Course of Doxycycline Due To Likely Chronic Bronchitis Due To His Continued Smoking. He Is Comfortable with the Plan of Care. All Questions Are Sought and Answered. Counseling-Symptomatic: 3-10 Minutes Follow-up with PCP to: Discuss Further Options Departure Impression Primary Impression: Bronchitis Additional Impression: Tobacco abuse Disposition: 01 HOME, SELF-CARE Condition: Improved Departure-Patient Inst. Decision time for Depature: 00:46 Referrals: [facility] (PCP/Family) Primary Care Physician Patient Instructions: Acute Bronchitis, Adult (DC), Quitting Smoking Add. Discharge Instructions: You really need to try and come up with a plan to quit smoking with your primary care provider. Follow up in 1-2 weeks. Take the antibiotics twice a day for the next 7 days. This is to treat your bronchitis/upper respiratory infection. You can use the Robitussin as needed for cough. Gpgz-mlg-nkhltnn Tylenol extra strength, 2 tablets every 6 hours or ibuprofen 3 tablets every 6 hours with food for body aches, pain. Return to the emergency department for any new, concerning or emergent com plaints. Scripts Doxycycline Hyclate (Doxycycline Hyclate) 100 Mg Tablet 100 MG PO BID, #14 TAB Prov: SIERRA LEMA MD 05/17/22 Copy Copies To 1: IGNACIO HERNANDEZ KATHRYN M MD May 16, 2022 23:51
[2022-05-17] MEDS ORDERED: KETOROLAC 30 MG/ML VIAL IM ONE
[2022-05-17] MEDS ORDERED: ONDANSETRON 4 MG (ZOFRAN) ORAL DISSOLVE TAB PO ONE
[2022-05-17] MEDS ORDERED: DOXY100T2 PO (00:48)
[2022-05-17 00:56] VITALS: BP 134/79
--- NOTE | 2022-05-17 06:06 | Diagnostic Imaging Report ---
INDICATION: Cough, shortness of breath and weakness. Comparison is made with prior examination of 01/25/2016. FINDINGS: The heart size, mediastinal configuration, and pulmonary vascularity are within normal limits. There is no pleural effusion, pneumothorax, or pneumonia. The osseous structures are unremarkable. IMPRESSION: No acute cardiopulmonary abnormality. Dictated by: Dictated on workstation # [id number]
== END 2022-05-17 00:58 | disposition home or self-care (01) ==
LOC: EDUNIT# 22:24 → ER 22:27
DX: J40 Bronchitis, not specified as acute or chronic (principal); Z72.0 Tobacco use; F41.9 Anxiety disorder, unspecified; Z28.310 Unvaccinated for COVID-19; Z20.822 Contact with and (suspected) exposure to COVID-19
CPT/HCPCS: 71046; 87636; 96372

== ENCOUNTER 2022-08-17 14:27 | Emergency (ER) | payer SELFPAY ==
[~2022-08-17] VITALS: Ht 165 cm; Wt 68.0 kg
[~2022-08-17 14:27] MED LIST changes: +DOXY100T2 PO
[2022-08-17] MEDS ORDERED: RX-TOBRAMYCIN 0.3% OPHTH (TOBREX) SOLN 5 ML BTL OP STA (14:46)
[2022-08-17] MEDS ORDERED: AUGMENTIN 875 MG TAB (AMOXICILLIN/CLAVULANATE) PO STA (14:46)
[2022-08-17] MEDS ORDERED: IBUPROFEN 800 MG (MOTRIN) TAB PO STA (14:46)
--- NOTE | 2022-08-17 14:54 | ED EENT ---
History of Present Illness General Chief Complaint: Eye Problems Stated Complaint: LEFT EYE RED / PAIN Nursing Triage Note: pt presents to ED with c/o left eye redness and drainage that began this morning. pt reports decreased peripheral vision and headache. Source: patient Exam Limitations: no limitations History of Present Illness Date Seen by Provider: Aug 17, 2022 Time Seen by Provider: 14:35 Initial Comments Here with complaint of matting to the left eye with left eye redness. Also has some swelling and complains of headache and sinus tenderness especially frontal and to a lesser extent maxillary left greater than right. Also complains of right ear popping and pain. Unsure about fever or chills. States that he is having decreased vision of the left side although the eyelids are down over the left due to inflammation. Straight on he has full vision. Patient has very poor dentition overall. Timing/Duration: gradual, this morning (Eye redness and drainage) Severity: moderate Location: eye (L), ear (R), facial, other (Sinuses) Prearrival Treatment: no prearrival treatment Associated Symptoms: No cough; nasal congestion/drainage, sinus infection Allergies and Home Medications Allergies Coded Allergies: NKANo Known Allergies (Unverified Allergy, Mild, 10/12/08) Patient Home Medication List Home Medication List Reviewed: Yes Doxycycline Hyclate (Doxycycline Hyclate) 100 Mg Tablet, 100 MG PO BID Prescribed by: SIERRA LEMA on 05/17/22 0048 Review of Systems Review of Systems Constitutional: see HPI; No chills, No fever Eyes: Inflammation; Denies Photophobia Ears: See HPI Nose: see HPI Mouth: see HPI Throat: denies pain, denies neck stiffness Respiratory: No cough, No short of breath Gastrointestinal: No nausea, No vomiting Skin: change in color (Mild redness around left eye); No lesions Past Jfajwrv-[id number]-[id number] Hx Patient Social History Tobacco Use?: Yes Tobacco type used: Cigarettes Smoking Status: Current Everyday Smoker Substance use?: Yes Substance type: Marijuana Alcohol Use?: No Immunizations Up To Date Tetanus Booster (TDap): More than 5yrs Influenza Vaccine Up-to-Date: No; Not Current First/Initial COVID19 Vaccinat: N/A Second COVID19 Vaccination [place]: N/A Third COVID19 Vaccination Date: N/A Past Medical History Surgery/Hospitalization HX: ANXIETY, DEPRESSION, SUBSTANCE ABUSE, SUICIDIAL IDEATION CHOLECYSTECTOMY Surgeries: Yes Gallbladder Respiratory: No Cardiac: No Neurological: No Reproductive Disorders: No Genitourinary: No Gastrointestinal: Yes Gall Bladder Disease Musculoskeletal: No Endocrine: No HEENT: No Cancer: No Psychosocial: Yes (marijuana use) Integumentary: No Blood Disorders: No Family Medical History Reviewed Nursing Family Hx No Pertinent Family Hx, Hypertension SOCIAL HISTORY: -SMOKES 1 PPD -ETOH--DAILY USE--HARD LIQUOR + BEER -DRUGS--FREQUENT MARIJUANA USE Physical Exam Vital Signs Vital Signs - First Documented 08/17/22 14:31 Temp 36.7 Pulse 125 Resp 20 B/P (MAP) 121/86 (98) Pulse Ox 98 O2 Delivery Room Air Height, Weight, BMI Height: 5'5.00" Weight: 165lbs. oz. 74.218132ch; 24.00 BMI Method:Stated General Appearance: WD/WN, no apparent distress Eyes: right eye normal inspection; left eye conjunctival inflammation, left eye lid inflammation, left eye other (Small amount of purulent matting noted around the left eye); bilateral eye PERRL, bilateral eye EOMI Ears: right ear TM dull, right ear TM red, right ear TM bulging; left ear auricle normal, left ear canal normal, left ear other (Moderate amount of wax but no obvious signs of infection) Nose: sinus tenderness, other (Nasal congestion with moderate erythema) Mouth/Throat: pharynx normal, other (Poor dentition overall) Neck: full range of motion, supple Cardiovascular: no murmur, tachycardia Respiratory: lungs clear, normal breath sounds Neurologic/Psychiatric: alert, oriented x 3 Skin: warm/dry, other (Slight redness around the left eye) Progress/Results/Core Measures Results/Orders My Orders Orders - MICHAEL VALENTIN MD Ibuprofen Tablet (Motrin Tablet) (08/17/22 14:46) Amoxicillin/Clavulanate Tablet (Augmenti (08/17/22 14:46) Rx-Tobramycin Ophth Drops (Rx-Tobrex 0.3 (08/17/22 14:46) Vital Signs/I&O 08/17/22 14:31 Temp 36.7 Pulse 125 Resp 20 B/P (MAP) 121/86 (98) Pulse Ox 98 O2 Delivery Room Air Blood Pressure Mean: 98 Progress Progress Note : Progress Note Seen and evaluated. Patient does have good pupil response. Findings consistent with bacterial conjunctivitis on the left. Also has findings consistent with sinusitis and definitely has right otitis media. Given all of this, we will initiate ibuprofen 800 mg p.o. now as well as Augmentin 875 1 tab p.o. now. We will initiate tobramycin eyedrops 2 drops to the left eye and continue that every 4 hours for 5 to 7 days. I did discuss with him about the importance of follow-up and recommended follow-up with [facility]. He apparently has appointment there in October but I told him he needed to be seen before that. He verbalized understanding. Discharged home with return precautions. Patient verbalized understanding instructions and agreement with plan. OTC medications discussed. Prescription discussed. Departure Impression Primary Impression: Sinusitis Qualified Codes: J01.90 - Acute sinusitis, unspecified Additional Impressions: Bacterial conjunctivitis of left eye Right otitis media Qualified Codes: H66.001 - Acute suppurative otitis media without spontaneous rupture of ear drum, right ear Disposition: 01 HOME, SELF-CARE Condition: Stable Departure-Patient Inst. Decision time for Depature: 14:56 Referrals: [facility] [place] (PCP/Family) Primary Care Physician Patient Instructions: Ear Infection ED, Conjunctivitis ([place]), Sinusitis, Adult ED Add. Discharge Instructions: All discharge instructions reviewed with patient and/or family. Voiced understanding. You may take ibuprofen 600 mg every 8 hours as needed for pain. You may also take Tylenol/acetaminophen 1000 mg every 8 hours as needed for pain. Follow-up with Dr. [facility] in the next few days. Call in the morning and let them know that you were seen in the ER and need follow-up. Use eyedrops 2 drops to the left eye every 4 hours while awake for the next 5 to 7 days. Take other medication as directed. Drink plenty of fluids. You may use [id number] Afrin nasal spray or the generic, 12-hour relief, 2 sprays to each nostril twice daily for 3 days only and then stop. Do not use more than 3 days. Return for worse pain, fever, vomiting, weakness, breathing problems or other concerns as needed. Scripts Amoxicillin/Potassium Clav (Amox Tr-K Clv 875-125 mg Tab) 875 Mg-125 Mg Tablet 1 EACH PO BID for 10 Days, #19 TAB 0 Refills Prov: MICHAEL VALENTIN MD 08/17/22 Copy Copies To 1: DAVY BULLARD OD MICHAEL VALENTIN MD Aug 17, 2022 14:54
[2022-08-17] MEDS ORDERED: AMOX1TAB12 PO (15:00)
[2022-08-17 15:07] VITALS: BP 121/86
== END 2022-08-17 15:07 | disposition home or self-care (01) ==
LOC: EDUNIT# 14:27 → ER 14:28
DX: J32.9 Chronic sinusitis, unspecified (principal); H10.89 Other conjunctivitis; H66.91 Otitis media, unspecified, right ear; F17.210 Nicotine dependence, cigarettes, uncomplicated; Z28.310 Unvaccinated for COVID-19
CPT/HCPCS: 99283